=== PATIENT | male | born 1950 | race Caucasian/White ===

== ENCOUNTER 2025-07-07 10:35 | Emergency (ER) | payer MEDICARE, SELFPAY ==
[2025-07-07 10:37] VITALS: BP 164/86; PULSE 89; RESP 14; TEMP 36.1; O2SAT 98; BMI 25.3
--- NOTE | 2025-07-07 10:47 | CT_ITS ---
PROCEDURE: ABDOMEN/PELVIS WITHOUT CONT 07/07/2025 REASON FOR EXAM: RIGHT SIDED PAIN TECHNIQUE: Procedure Code: [id number] Modality: CT Procedure: ABDOMEN/PELVIS WITHOUT CONT Noncontrast technique limits evaluation of the abdominal and pelvic viscera. Coronal and Sagittal reconstruction series were provided. One or more dose reduction techniques were used (e.g., Automated exposure control, adjustment of the mA and/or kV according to patient size, use of iterative reconstruction technique). RADIATION DOSE SUMMARY: CTDlvol: 7.31 mGy DLP: 408.57 mGycm COMPARISON: None. FINDINGS: Lung bases: Multiple lobulated masses with the largest measures 4.6 x 4.4 cm suspicious for cancer. Liver: Unremarkable. Gallbladder: Unremarkable. Spleen: Unremarkable. Pancreas: Unremarkable. Adrenals: Unremarkable. Kidneys: Multiple bilateral kidney stones with the largest measures 3 mm. Perinephric fat stranding. No hydronephrosis. Bladder: Unremarkable. Reproductive Organs: Enlarged prostate measures 6 cm. Bowel: Colonic diverticulosis. Asymmetric wall thickening of the right transverse colon and splenic flexure concerning for colon cancer. Distally, central transverse colon pericolic fat stranding along with colonic diverticulosis consistent with acute diverticulitis. Appendix: Unremarkable. Lymph nodes: Multiple enlarged retroperitoneal and inguinal lymph nodes. Vasculature: No aneurysm. Peritoneum / Retroperitoneum: No free air or free fluid. Bones: No acute bony abnormalities. CT/Abdomen/Pelvis without Cont IMPRESSION: Multiple lobulated masses with the largest measures 4.6 x 4.4 cm suspicious for cancer. Asymmetric wall thickening of the right transverse colon and splenic flexure co ncerning for colon cancer. Distally, central transverse colon pericolic fat stranding along with colonic d iverticulosis consistent with acute diverticulitis. No abscess. Bilateral kidney stones with the largest measures 3 mm. Perinephric fat strand ing. No hydronephrosis. Reading Location: [id number]
--- NOTE | 2025-07-07 10:47 | EDS_ITS ---
HPI HPI - GI History of Present Illness Chief Complaint: Abd Pain Informant: patient Narrative Narrative: 75-year-old male presenting to the emergency room chief complaint of abdominal pain. Patient states that on Thursday he was putting some heavy things back in his barn. He went inside and ate a salad and developed pain on the right side of his abdomen. States it was pretty intense and he was hesitant to really to eat much and wondered if perhaps he had some food poisoning but he states he never really got sick. Pain seem to be worse with movement being upright as well as laying down. Last night he wrestled to sleep and eventually went and sat out of the chair was able to sleep and today he is feeling better but still has some point tenderness in the right mid abdomen. No changes in bowel movements. No urinary symptoms no fevers. He has not noticed any bulging. No testicular pain no radiation to the back. [facility] Medical History (Updated 07/07/25 @ 15:[address] Aureliano Garcia DO) Abdominal pain Allergy/AdvReac Type Severity Reaction Status Date / Time No Known Allergies Allergy Verified 07/07/25 11:06 Social History Smoking Status: Unknown if ever smoked ROS ROS ED Constitutional Constitutional ED: Denies chills, fever(s) or weight loss Eyes Eyes: Denies change in vision or diplopia ENT ENT ED: Denies ear pain, rhinorrhea or sore throat Cardiovascular Cardiovascular: Denies chest pain, orthopnea, palpitations or racing heartbeat Respiratory/Chest Respiratory/Chest: Denies cough, dyspnea or orthopnea Gastrointestinal Gastrointestinal: Reports abdominal pain; Denies diarrhea, nausea or vomiting Genitourinary Genitourinary ED: Denies dysuria, hematuria or urinary frequency Musculoskeletal Musculoskeletal: Denies arthralgias, back pain, myalgias or neck pain Integumentary Denies abscess or rash Neurologic Neurologic: Denies headache(s) or weakness Psychiatric Psychiatric: Denies anxiety, depression, suicidal ideation or suicidal thoughts Endocrine Endocrinology: Denies polydipsia, polyphagia or polyuria Allergic/Immunologic Allergic/Immunologic ED: Denies mouth swelling, tongue swelling or urticaria EXAM Physical Exam Const Vital Signs: 07/07/25 10:37 07/07/25 13:19 07/07/25 15:04 Temperature 97 F L Temperature Source Temporal Pulse Rate 89 67 84 Respiratory Rate 14 16 17 Blood Pressure 164/86 H 162/78 H 152/84 H Blood Pressure Mean 112 106 106 Pulse Ox 98 99 99 Oxygen Delivery Method Room Air Room Air Room Air 07/07/25 15:57 Temperature 97 F L Temperature Source Pulse Rate 84 Respiratory Rate 17 Blood Pressure 152/84 H Blood Pressure Mean 106 Pulse Ox 99 Oxygen Delivery Method Positive well nourished and well developed General Appearance ED: well developed and NAD HEENT Reports normocephalic, head/scalp atraumatic and moist mucous membranes Eyes PERRL and EOMs intact bilaterally Neck no lymphadenopathy, supple and no JVD Resp normal respiratory effort and clear to auscultation bilaterally Cardio regular rate, regular rhythm and no murmurs GI GI Narrative: Tender to palpation in the right mid abdomen very focal about a 2 finger breath. No guarding no rebound. No obvious hernia is seen or felt. Inspection: Negative for abdominal distention Auscultation: normoactive bowel sounds Palpation: soft; Negative for guarding or rebound tenderness present Back/Spine no CVA tenderness and normal ROM Extremity normal to inspection General Extremety ED: Negative for edema General Extremity: Negative for edema Neuro oriented x3 and CN's II-XII intact bilaterally Sensorium / Orientation: alert Motor Exam: strength 5/5 throughout Psych mental status grossly normal Mood & Affect: Negative for depressed or tearful Skin no rashes or lesions noted and no wounds MDM MDM MDM Narrative Medical decision making narrative: Differential diagnosis includes but not limited to abdominal muscle strain abdominal wall hematoma colitis appendicitis cholecystitis pancreatitis anemia diverticulitis Urinalysis was negative for gross infection or hematuria. CT ab pelvis without oral contrast was obtained. This is concerning for a lung metastasis as well as colon cancer. I reviewed the case with Dr. Sprague from gastroenterology. We are going to repeat the CT with IV contrast and oral contrast. CTA of the chest abdomen pelvis was obtained read by radiology reviewed by myself as well as with Dr. Sprague. Blood work shows normal LFTs and hemoglobin level 12.2 normal electrolytes normal lipase. I explained to the patient I am very concerned about colon cancer with metastasis. Dr. Sprague's office will be in contact with him to schedule colonoscopy in the next few days. I also spoke with the patient's primary care doctor to advise them of today's findings. Patient was given return instructions. At this time I am not seeing evidence of obstruction. Not seeing evidence of significant GI bleed that would need admission. Patient is comfortable with this plan. History & Record Review Discussion w/independent historian: Patient Lab Data Attestation: I reviewed the patient's lab results. Labs: Laboratory Results - last 24 hr 07/07/25 07/07/25 11:20 11:55 WBC 6.5 RBC 4.03 L Hgb 12.2 L Hct 36.2 L MCV 89.8 MCH 30.3 MCHC 33.7 RDW Std Deviation 41.0 RDW Coeff of [place] 12.4 Plt Count 283 MPV 9.4 Immature Gran % (Auto) 0.300 Neut % (Auto) 75.1 H Lymph % (Auto) 11.9 L [place] % (Auto) 9.3 Eos % (Auto) 2.6 Baso % (Auto) 0.8 Absolute Neuts (auto) 4.8 Absolute Lymphs (auto) 0.77 L Nucleated RBC % 0 Sodium 135 Potassium 4.3 Chloride 101 Carbon Dioxide 22.3 Anion Gap 12 BUN 13 Creatinine 1.00 Estim Creat Clear Calc 64.81 Est GFR (MDRD) Non-Af 79 BUN/Creatinine Ratio 13.2 Glucose 100 H Calcium 9.2 Total Bilirubin 0.46 Direct Bilirubin 0.21 AST 11 ALT 11 Alkaline Phosphatase 55 Total Protein 6.9 Albumin 3.8 Globulin 3.1 Lipase 33 Urine Color Yellow Urine Clarity Clear Urine pH 6.0 Ur Specific [place] 1.010 Urine Protein 15 H Urine Glucose (UA) Normal Urine Ketones Negative Urine Occult Blood 10 H Urine Nitrite Negative Urine Bilirubin Negative Urine Urobilinogen Normal Ur Leukocyte Esterase Negative Urine RBC 0 SEEN Urine WBC 0 SEEN Ur Squamous Epith Cells 0 SEEN Urine Bacteria 0 SEEN Urine Mucus 0 SEEN Radiography Diagnostic Testing: Clinical Impression(s) from Imaging Studies Abdomen/Pelvis CT 07/07/25 10:47 IMPRESSION: Multiple lobulated masses with the largest measures 4.6 x 4.4 cm suspicious for cancer. Asymmetric wall thickening of the right transverse colon and splenic flexure concerning for colon cancer. Distally, central transverse colon pericolic fat stranding along with colonic diverticulosis consistent with acute diverticulitis. No abscess. Bilateral kidney stones with the largest measures 3 mm. Perinephric fat stranding. No hydronephrosis. Reading Location: [facility] Chest/Abdomen/Pelvis CTA 07/07/25 14:20 IMPRESSION: Multiple pulmonary masses worse in the right lung in keeping with metastatic disease. Large apple-core mass in the region of the hepatic flexure as well as in the rectosigmoid junction. Neoplastic processes should be ruled out. Marked degree of prostatic enlargement with indentation of the bladder base. Diffuse bladder wall thickening. Reading Location: [id number] Management Discussion w/another healthcare provider: [employer] (Dr. Sprague gastroenterology) and PCP (Dr. Bhatti) Discharge Plan Triage Chief Complaint: Abd Pain ED Provider: Aureliano Garcia Dx/Rx/DC Orders Clinical Impression: Abdominal pain, acute, Colon cancer, Cancer, metastatic to lung Instructions: Colonoscopy Primary Care Provider: Aldo Goodwin Referrals: Aldo Goodwin DO [Primary Care Provider, Family Practice] - As soon as possible Brian Sprague DO [Med Staff - Active Staff, Gastroenterology] - As soon as possible Referral Note: [facility] office will be in contact with you to schedule the colonoscopy Print Language: Bulgarian Disposition Disposition: Home, Self Care Discharge Date/Time: 07/07/25 15:58
[2025-07-07 11:24] LABS: Mucous, Urine 0 SEEN /hpf (<or=2+); Red Blood Cells-Urine 0 SEEN /hpf (0-5); Squamous Epithelial Cells - UA 0 SEEN /hpf (0-5)
[2025-07-07 11:25] LABS: Color, Urine Yellow (Yellow); Glucose, Dipstick Normal (Normal); Ketone-Dipstick Negative (Negative); Leukocyte Esterase-Dipstick Negative /ul (Negative); Nitrite-Dipstick Negative (Negative); Occult Blood-Urine 10 /ul (Negative); Protein-Dipstick 15 mg/dl (Negative); Specific Gravity, Urine 1.010 (1.002-1.030); Urine Bilirubin Dipstick Negative (Negative)
[2025-07-07 12:12] LABS: Hematocrit 36.2 % (40-54); Hemoglobin 12.2 g/dL (13.0-16.5); Immature Granulocytes Count 0.020 X10^3/uL (0.0-0.0); Mean Corp Hgb Conc 33.7 g/dL (32-36); Mean Corpuscular Volume 89.8 fL (80-94); Mean Platelet Vol. 9.4 fl (6.2-12.0); NRBC Flagged by Analyzer 0 % (0-5); Platelet Count 283 K/mm3 (150-450); RBC Distribution Width CV 12.4 % (11.6-14.6); RBC Distribution Width SD 41.0 fl (35.1-43.9); Red Blood Count 4.03 M/mm3 (4.6-6.2); White Blood Count 6.5 K/mm3 (4.4-11.0)
[2025-07-07 12:29] LABS: AST(SGOT) 11 U/L (<=37); Alanine Aminotransfer ALT/SGPT 11 U/L (<=46); Albumin, Serum 3.8 g/dL (3.4-4.8); Alkaline Phosphatase 55 U/L (40-129); Anion Gap 12 (5-15); BUN 13 mg/dL (4-19); BUN/Creat Ratio 13.2 RATIO (10-20); Bilirubin, Direct 0.21 mg/dL (0.00-0.30); Calcium,Total 9.2 mg/dL (7.6-11.0); Carbon Dioxide 22.3 mmol/L (21.0-32.0); Chloride 101 mmol/L (98-108); Estimated Creatinine Clearance 64.81 ml/min (50-250); Globulin 3.1 g/dL (2.2-4.2); Glucose 100 mg/dL (70-99); Lipase 33 U/L (13-75); Potassium 4.3 mmol/L (3.3-5.1)
[2025-07-07 13:19] VITALS: BP 162/78; PULSE 67; RESP 16; O2SAT 99
--- NOTE | 2025-07-07 14:20 | CT_ITS ---
PROCEDURE: CTA CHST, ABD, PEL W AND/OR WO 07/07/2025 REASON FOR EXAM: ABNORMAL ABD CT, COLITIS (ISCHEMIC, DIVERTICULITIS Right lower quadrant pain since Thursday. TECHNIQUE: Procedure Code: CTCTA.CHAP.2 Modality: CT Procedure: CTA CHST, ABD, PEL W AND/OR WO Coronal and Sagittal reconstruction series were provided. One or more dose reduction techniques were used (e.g., Automated exposure control, adjustment of the mA and/or kV according to patient size, use of iterative reconstruction technique. CONTRAST: Isovue-300 VOLUME: 100 mL RADIATION DOSE SUMMARY: CTDlvol: 7.2 mGy DLP: 658.15 mGycm COMPARISON: Prior study done earlier in the day. FINDINGS: CHEST: Lines and tubes: None Mediastinum: Unremarkable Heart: The heart is nonenlarged. Coronary artery calcification. Thoracic Aorta: No thoracic aortic aneurysm or dissection. Scattered plaque formation of the thoracic aorta. Lungs and Airways: Multiple masses are seen in both lobes worse in the right hemithorax. The largest is in the right upper lobe and is lobulated. This measures 4.4 cm by 4.8 cm. This is in keeping with a metastatic deposits. Pleura: No pleural effusion. Bones: Degenerative changes of the spine. Other: ABDOMEN AND PELVIS: Liver: Borderline hepatomegaly. No focal lesion is seen. Gallbladder: The gallbladder is contracted. Spleen: Normal size. Pancreas: Normal size without evidence of mass surrounding inflammation or ductal dilation. Adrenals: Unremarkable Kidneys: Stable right renal cyst. Bladder: Diffuse bladder wall thickening. Marked degree of enlargement of the prostate gland with lobular contours. There is indentation at the bladder base. Bowel: Once again, there is large heterogeneous mass in the region of the hepatic flexure with apple core appearance. Scattered sigmoid diverticula. Possible apple-core lesion in the sigmoid colon just proximal to the rectosigmoid junction. Vasculature: Scattered atherosclerotic plaque formation. The celiac artery and superior mesenteric arteries are widely patent. Peritoneum / Retroperitoneum: Small retroperitoneal lymph nodes are seen. These measure less than 1 cm. Multiple small lymph nodes are seen in the pelvis. These measure less than 1 cm. Bones: Degenerative changes of the spine. CT/CTA Chst, Abd, Pel W and/or WO IMPRESSION: Multiple pulmonary masses worse in the right lung in keeping with metastatic di sease. Large apple-core mass in the region of the hepatic flexure as well as in the re ctosigmoid junction. Neoplastic processes should be ruled out. Marked degree of prostatic enlargement with indentation of the bladder base. D iffuse bladder wall thickening. Reading Location: [id number]
[2025-07-07 15:04] VITALS: BP 152/84; PULSE 84; RESP 17; O2SAT 99
[2025-07-07 15:57] VITALS: BP 152/84; PULSE 84; RESP 17; TEMP 36.1; O2SAT 99
== END 2025-07-07 15:58 | disposition home or self-care (01) ==
PROVIDERS: Emergency Provider Emergency Medicine; PCP Family Medicine; Visit Provider Emergency Medicine
DX: R10.9 Unspecified abdominal pain (principal); C78.00 Secondary malignant neoplasm of unspecified lung; C18.9 Malignant neoplasm of colon, unspecified
CPT/HCPCS: 71275; 74174; 74176; 80048; 80076; 81001; 83690; 85025; 99283; Q9967; A4216

== ENCOUNTER 2025-07-14 06:25 | Day surgery (SDC) | payer MEDICARE, SELFPAY ==
[2025-07-14] VITALS (9 sets, daily range): BP systolic 91–147; BP diastolic 60–74; PULSE 56–71; RESP 9–18; TEMP 35.9–36.1; O2SAT 97–100; BMI 24.0
--- OUTSIDE RECORDS SUMMARY | 2025-07-14 06:29 | XMS RPT_ITS | CCD ---
Author Organization [facility] Care Team Providers Care General Merchandise Manager Name Role Phone Nai Goodwin DO Primary Care Provider [phone] NAI GOODWIN Attending Unavailable NAI GOODWIN Primary Care Unavailable NAI GOODWIN Attending Unavailable NAI GOODWIN Primary Care Unavailable Nai Goodwin DO Primary Care Provider [phone] Medications Current Medications Medication Drug Class(es) Dates Sig (Normalized) Sig (Original) amLODIPine 5 mg oral tablet (16 sources) Dihydropyridine Calcium Channel Jesusita Start: 06-28-2024 End: 06-26-2025 take 1 tablet by mouth once daily amLODIPine (Norvasc) 5 MG tablet Take 1 tablet (5 mg) by mouth daily. 90 tablet 1 12/28/2024 06/26/2025 Active Start: 12-08-2022 End: 10-18-2024 take 1 tablet by mouth once daily amLODIPine (Norvasc) 2.5 MG tablet Take 1 tablet (2.5 mg) by mouth daily. 90 tablet 04/21/2024 06/28/2024 Discontinued (Reorder) atorvastatin 10 mg oral tablet (17 sources) HMG-CoA Reductase Inhibitor Start: 06-23-2022 End: 06-26-2025 take 1 tablet by mouth once daily atorvastatin (Lipitor) 10 MG tablet Take 1 tablet (10 mg) by mouth daily. 90 tablet 1 12/28/2024 06/26/2025 Active lisinopril 20 mg oral tablet (17 sources) Angiotensin Converting Enzyme Inhibitor Start: 06-23-2022 End: 06-26-2025 take 1 tablet by mouth twice daily lisinopril 20 MG tablet Take 1 tablet (20 mg) by mouth 2 times daily. 180 tablet 1 12/28/2024 06/26/2025 Active sildenafil 100 mg oral tablet (14 sources) Phosphodiesterase 5 Inhibitor Start: 11-11-2022 End: 12-28-2024 take 1 tablet by mouth every twenty-four hours as needed sildenafil (Viagra) 100 MG tablet Take 1 tablet (100 mg) by mouth Daily as needed for erectile dysfunction (as needed for erectile dysfunction). 8 tablet 3 12/28/2024 Active Problems Active Problems Problem Classification Problem Date Documented Da te Episodic/Chronic Disorders of lipid metabolism (16 sources) Hypercholesterole ailyn; Translations: [Pure hypercholesterole ailyn, unspecified] Onset: 08-17-2021 Chronic Essential hypertension (16 sources) Essential hypertension; Translations: [Essential (primary) hypertension] Onset: 06-19-2021 Chronic Other male genital disorders (5 sources) Male erectile dysfunction, unspecified; Translations: [Impotence of organic origin] Onset: 06-28-2024 06-28-2024 Chronic Past or Other Problems Problem Classification Problem Date Documented Da te Episodic/Chronic Other gastrointestinal disorders (12 sources) Stool DNA-based colorectal cancer screening positive; Translations: [Other fecal abnormalities] Onset: 05-08-2021 Episodic Other screening for suspected conditions (not mental disorders or infectious disease) (19 sources) Raised prostate specific antigen; Translations: [Elevated prostate specific antigen [PSA]] Onset: 11-15-2022 Episodic Residual codes; unclassified (10 sources) Family history of coronary arteriosclerosis; Translations: [Family history of ischemic heart disease and other diseases of the circulatory system] Onset: 06-19-2021 06-02-2022 Episodic Results Test Name Value Interpretation Reference Range [facility] ity Office Visiton 12-28-2024 Follow-up visit [id number] Jamee Green 1950 M Date Provider Department Center 12/28/2024 [id number] GOODWIN [facility] Family History Problem Relation Age of Onset Tuberculosis Mother Comments: age 39, Alcohol abuse Father Comments: age 58 Heart failure Father Comments: smoker Accidental Sister Comments: in MVA Lung cancer Sister Comments: age 64, SMOKER No Known Problems Brother Comments: not close, living in [place] Pulmonary embolism Brother Comments: age 39 Hypertension Brother Comments: alive age 75 Coronary artery disease Brother 62 Comments: CABG, smoker, alive age 71 Diabetes Maternal Grandfather Substance Abuse Paternal Grandfather Family Status - Relation Status Age at Mother Father Sister Sister Brother Alive Brother Brother Alive Brother Alive Maternal Grandmother Maternal Grandfather Paternal Grandmother Paternal Grandfather Level of Service:70188 [place] OFFICE/OUTPATIENT ESTABLISHED LOW MDM 20 MIN Reason for Visit and Comments: Follow-up [160415] - Med check Normal [facility] Progress Noteon 12-28-2024 Progress Note [facility] - [address] [facility] [address] Visit type: Established Patient Reason for Visit: Follow-up (Med check) Assessment / Plan: Jamee was seen today for follow-up. Diagnoses and all orders for this visit: Essential hypertension (Primary) - CBC auto differential; Future - Comprehensive metabolic panel; Future - CBC auto differential - Comprehensive metabolic panel Hypercholesterolemia - Lipid panel; Future - Lipid panel Elevated PSA, less than 10 ng/ml - PSA, total and free; Future - PSA, total and free Other orders - amLODIPine (Norvasc) 5 MG tablet; Take 1 tablet (5 mg) by mouth daily. - atorvastatin (Lipitor) 10 MG tablet; Take 1 tablet (10 mg) by mouth daily. - lisinopril 20 MG tablet; Take 1 tablet (20 mg) by mouth 2 times daily. - sildenafil (Viagra) 100 MG tablet; Take 1 tablet (100 mg) by mouth Daily as needed for erectile dysfunction (as needed for erectile dysfunction). Everything is stable. Continue amlodipine Lipitor and lisinopril. Discussed need for urology referral if PSA gets above 10 Subjective: Patient ID: Jamee Green is a 74 y.o. male. HPI hypertension lipid management. Patient has no new concerns. Still very active with his [employer] motorcycle trips. Enjoys it immensely. No cardiopulmonary concerns. Blood pressure excellent at home. Only concern is slightly elevated PSA over the years. Needs exam. Review of Systems no earache sore throat or cough. Defers regular flu vaccinations. No chest pain or dyspnea. No bowel changes. No heartburn melena or blood no constipation diarrhea. No change in urine flow. Strong stream. No change in nocturia postvoid dribbling or genital pain. No new arthralgias. Allergies[1] Current Medications[2] Problem List[3] Social History Tobacco Use Smoking status: Former Current packs/day: 0.00 Types: Cigarettes Quit date: 08/17/1989 Years since quittin.3 Smokeless tobacco: Never Substance Use Topics Alcohol use: Yes Surgical History[4] Family History[5] Objective: BP 134/78 Pulse 76 Temp 36.6 ?C (97.8 ?F) (Temporal) Ht 5' 9 (1.753 m) Wt 176 lb (79.8 kg) SpO2 96% BMI 25.99 kg/m? Physical Exam The physical exam is generally normal. Patient appears well, alert and oriented x 3, pleasant, cooperative. Vitals are as noted. Neck supple, no abnormal adenopathy, thyroid lesions or masses.. No carotid bruits lungs are clear to auscultation. Heart is regular, without murmurs, gallops or ectopy. Abdomen is soft, non tender, without masses, hepatosplenomegaly, or bruits. Normal BS evident. Extremities are normal without edema. Peripheral pulses are good. No worrisome skin lesions. Screening neurological exam is normal without focal deficits. [1] No Known Allergies [2] Current Outpatient Medications: amLODIPine (Norvasc) 5 MG tablet, Take 1 tablet (5 mg) by mouth daily., Disp: 90 tablet, Rfl: 1 atorvastatin (Lipitor) 10 MG tablet, Take 1 tablet (10 mg) by mouth daily., Disp: 90 tablet, Rfl: 1 lisinopril 20 MG tablet, Take 1 tablet (20 mg) by mouth 2 times daily., Disp: 180 tablet, Rfl: 1 sildenafil (Viagra) 100 MG tablet, Take 1 tablet (100 mg) by mouth Daily as needed for erectile dysfunction (as needed for erectile dysfunction)., Disp: 8 tablet, Rfl: 3 [3] Patient Active Problem List Diagnosis Family history of coronary artery disease in brother Positive colorectal cancer screening using Cologuard test Essential hypertension Hypercholesterolemia Elevated PSA, less than 10 ng/ml Erectile dysfunction [4] Past Surgical History: Procedure Laterality Date MULTIPLE TOOTH EXTRACTIONS dentures [5] Family History Problem Relation Name Age of Onset Tuberculosis Mother age 39, Alcohol abuse Father age 58 Heart failure Father smoker Accidental Sister Madeline in MVA Lung cancer Sister Grace age 64, SMOKER No Known Problems Brother Francisco not close, living in [place] Pulmonary embolism Brother Jose F age 39 Hypertension Brother Andriy alive age 75 Coronary artery disease Brother Maru ([place]) 62 CABG, smoker, alive age 71 Diabetes Maternal Grandfather Substance Abuse Paternal Grandfather [facility] 37on 06-28-2024 37 Personalized Preventative Plan for Jamee Green - 06/28/2024 Medicare offers a range of preventative health benefits. Some of the tests and screenings are paid in full while others may be subject to a deductible, co-insurance, and / or copay. Some of these benefits include a comprehensive review of your medical history including lifestyle, illnesses that may run in your family, and various assessments and screenings as appropriate. After reviewing your medical record and screening and assessments performed today, your provider may have ordered immunizations, labs, imaging, and / or referrals for you. A list of these orders (if applicable) as well as your Preventative Care list are included within your After Visit Summary for your review. Other Preventative Recommendations: A preventive eye exam by an artificial glass eye maker is recommended every 1-2 years to screen for glaucoma, cataracts, macular degeneration, and other eye disorders. A preventive dental visit is recommended every 6 months. Try to get at least 150 minutes of exercise per week or 10,000 steps per day on a pedometer. You need 1200-1500mg of calcium and [id number] international units of vitamin D per day. It is possible to meet your calcium requirement with diet alone, but a vitamin D supplement is usually necessary to meet this goal. When exposed to the sun, use a sunscreen that protects against both UVA and UVB radiation with an SPF of 30 or greater. Reapply every 2-3 hours or after sweating, drying off with a towel, or swimming. Always wear a seat belt when traveling in a car. Always wear a helmet when riding a bicycle or a motorcycle [facility] Office Visiton 06-28-2024 Follow-up visit [id number] Jamee Green 1950 M Date Provider Department Center 06/28/2024 [id number] GÓMEZ [facility] Family History Problem Relation Age of Onset Tuberculosis Mother Comments: age 39, Alcohol abuse Father Comments: age 58 Heart failure Father Comments: smoker Accidental Sister Comments: in MVA Lung cancer Sister Comments: age 64, SMOKER No Known Problems Brother Comments: not close, living in [place] Pulmonary embolism Brother Comments: age 39 Hypertension Brother Comments: alive age 75 Coronary artery disease Brother 62 Comments: CABG, smoker, alive age 71 Diabetes Maternal Grandfather Substance Abuse Paternal Grandfather Family Status - Relation Status Age at Mother Father Sister Sister Brother Alive Brother Brother Alive Brother Alive Maternal Grandmother Maternal Grandfather Paternal Grandmother Paternal Grandfather Level of Service:G0439 [place] PPPS, SUBSEQ VISIT (25) Reason for Visit and Comments: Medicare Annual Wellness Visit Subsequent [677] Normal [facility] Progress Noteon 06-28-2024 Progress Note [facility] - [address] [facility] [address] Dept: [phone] Dept Chief Complaint: Jamee Green is an 74 y.o. male here for an annual wellness visit. Hypertension lipid management for patient with history of elevated PSA less than 10 and also positive Cologuard. There has been no new concerns. Still has a very active lifestyle traveling in his [employer] motorcycle to multiple [place] [facility]. He continues not to smoke or drink and overall feels well. Assessment/Plan : Problem List Items Addressed This Visit Positive colorectal cancer screening using Cologuard test Essential hypertension Relevant Orders CBC auto differential Comprehensive metabolic panel Hypercholesterolemia Relevant Orders Lipid panel Elevated PSA, less than 10 ng/ml Relevant Orders PSA Total (Screening) Erectile dysfunction Other Visit Diagnoses Encounter for subsequent annual wellness visit (AWV) in Medicare patient - Primary Prostate cancer screening Relevant Orders PSA Total (Screening) I have reviewed and reconciled the medication list with the patient today. Current Outpatient Medications Medication Sig Dispense Refill amLODIPine (Norvasc) 5 MG tablet Take 1 tablet (5 mg) by mouth daily. 90 tablet 1 atorvastatin (Lipitor) 10 MG tablet Take 1 tablet (10 mg) by mouth daily. 90 tablet 1 lisinopril 20 MG tablet Take 1 tablet (20 mg) by mouth 2 times daily. 180 tablet 1 sildenafil (Viagra) 100 MG tablet Take 1 tablet (100 mg) by mouth Daily as needed for erectile dysfunction (as needed for erectile dysfunction). 8 tablet 3 No current facility-administered medications for this visit. Also reviewed during this visit: Problems Med Hx Surg Hx Fam Hx The following health maintenance schedule was reviewed with the patient and provided in printed form in the after visit summary: Health Maintenance Topic Date Due Hepatitis C Screening Never done Diabetes Screening Never done DTaP/Tdap/Td Vaccines (1 - Tdap) Never done Zoster Vaccines (1 of 2) Never done Colorectal Cancer Screening 09/09/2022 Medicare Advantage Annual Wellness Visit 08/17/2023 Influenza Vaccine (1) Never done COVID-19 Vaccine (3 - season) 2024 Depression Screening 06/28/2025 RSV Immunization for Adults (1 - 1-dose 75+ series) 2026 Lipid Panel 08/24/2028 Pneumococcal Vaccine: 65+ Years Completed RSV Immunization under 20 Months Aged Out HIB Vaccines Aged Out Hepatitis B Vaccines Aged Out IPV Vaccines Aged Out Hepatitis A Vaccines Aged Out Meningococcal Vaccine Aged Out Rotavirus Vaccines Aged Out HPV Vaccines Aged Out List of current healthcare providers: Patient Care Team: Nai Goodwin DO as PCP - General Orders Placed This Encounter Procedures CBC auto differential Standing Status: Future Number of Occurrences: 1 Standing Expiration Date: 06/28/2025 Comprehensive metabolic panel Standing Status: Future Number of Occurrences: 1 Standing Expiration Date: 06/28/2025 Lipid panel Standing Status: Future Number of Occurrences: 1 Standing Expiration Date: 06/28/2025 PSA Total (Screening) Standing Status: Future Number of Occurrences: 1 Standing Expiration Date: 06/28/2025 Review of Systems weight and appetite is good. No recent earache sore throat or cough. No chest pain or palpitations or dyspnea. Blood pressure apparently pretty well at home. No heartburn or abdominal pain. Bowels are regular. No melena or blood. Has a positive Cologuard 3 years ago but has somehow not followed up with his GI referrals. He is not interested in getting those studies. Also history of elevated PSA and has deferred urology consultation. No hesitancy but has some urgency. Some nocturia is unchanged. No postvoid dribbling dysuria or hematuria. No pelvic pain. Rare arthralgia. Overall feels great and enjoys his lifestyle Physical Exam The physical exam is generally normal. Patient appears well, alert and oriented x 3, pleasant, cooperative. Vitals are as noted. No carotid bruits. Neck supple, no abnormal adenopathy, thyroid lesions or masses. Ears, nose and throat are normal without acute findings. Lungs are clear to auscultation. Heart is regular, without murmurs, gallops or ectopy. Abdomen is soft, non tender, without masses, hepatosplenomegaly, or bruits. Normal BS evident. He defers YANIV. Extremities are normal without edema. Peripheral pulses are fair. No worrisome skin lesions. Screening neurological exam is normal without focal deficits. Objective : BP (!) 158/82 Pulse 68 Temp 36.3 ?C (97.4 ?F) (Temporal) Ht 5' 8 (1.727 m) Wt 168 lb (76.2 kg) SpO2 100% BMI 25.54 kg/m? No results found. Subjective : Health Risk Assessment: General: General In general, how would you say your health is?: Very good In the past 7 days, hav (more content not included)... Normal [facility] 36on 04-21-2024 36 RX loaded Next ov 08/24/23 Normal [facility] PSA Screeningon 12-09-2022 Interpretation and review of laboratory results Abnormal [facility] Prostate specific Ag [Mass/Vol] 5.48 ng/mL High < OR = 4.00 [facility] Comment on above: The total PSA value from this assay system is standardized against the WHO standard. The test result will be approximately 20% lower when compared to the equimolar-standardized total PSA ([place]). Comparison of serial PSA results should be interpreted with this fact in mind. This test was performed using the Siemens chemiluminescent method. Values obtained from different assay methods cannot be used interchangeably. PSA levels, regardless of value, should not be interpreted as absolute evidence of the presence or absence of disease. [facility] CNCOon 01-23-2022 CNCO Letter Text Normal [facility] CNCOon 06-27-2021 CNCO Letter Text Normal [facility] OBSOLETEon 06-27-2021 OBSOLETE Refill (GSTNOR) JAMEE GREEN ([id number]) 1950 M Date Time Provider Department 06/27/21 LATIAROLANDO WESМарина MONTOYA During your visit today, we recorded the following information about you: Allergies As of Date: 06/27/2021 (No Known Allergies) Date Reviewed: Never Reviewed Reason for Visit: Refill Request [94] Primary Visit Diagnosis:Screening for colon cancer [Z12.11] Order(s):COLONOSCOPY SCRN NOT HIGH RISK [[id number]] Order #: [id number] FUTURE Prescriptions as of 06/27/2021 - peg 3350-Electrolytes (GOLYTELY) 236-22.74-6.74 -5.86 gram suspension Refer to printed patient instructions that will be mailed to you. - sildenafil (VIAGRA) 100 mg tablet Take 100 mg by mouth as needed. Problem List As Of Date: 06/27/2021 (None) Encounter Status:Closed by BOSSMAN LOMBARDO on 06/27/21 Normal [facility] CNCOon 06-05-2021 CNCO Letter Text Normal [facility] Vital Signs Date Time Vital Sign Value Performing Clinician Calvin lindquist 12-28-2024 07:36-0400 Diastolic blood pressure 78 mm[Hg] Nai Goodwin DO Work Phone: [employer] 12-28-2024 07:36-0400 Heart rate 76 /min Nai Christa [employer] Work Phone: [employer] 12-28-2024 07:36-0400 Systolic blood pressure 134 mm[Hg] Nai Goodwin DO Work Phone: [employer] 12-28-2024 07:14-0400 Body height 175.3 cm Nai Maurokizzypop [employer] Work Phone: [employer] 12-28-2024 07:14-0400 Body mass index (BMI) [Ratio] 25.99 kg/m2 Nai Mauroeugene [employer] Work Phone: [employer] 12-28-2024 07:14-0400 Body temperature 97.81 [degF] Nai Goodwin DO Work Phone: [facility] [place] [facility] 12-28-2024 07:14-0400 Body weight 79.83 kg Nai Goodwin DO Work Phone: [facility] 12-28-2024 07:14-0400 SaO2% (BldA) [Mass fraction] 96 % Nai Goodwin DO Work Phone: [facility] 06-28-2024 16:48-0500 Diastolic blood pressure 82 mm[Hg] Nai Goodwin DO Work Phone: [facility] 06-28-2024 16:48-0500 Heart rate 68 /min Nai Goodwin DO Work Phone: [facility] 06-28-2024 16:48-0500 Systolic blood pressure 158 mm[Hg] Nai Godowin DO Work Phone: [facility] 06-28-2024 15:53-0500 Body height 172.7 cm Nai Goodwin DO Work Phone: [facility] 06-28-2024 15:53-0500 Body mass index (BMI) [Ratio] 25.54 kg/m2 Nai Goodwin DO Work Phone: [facility] 06-28-2024 15:53-0500 Body temperature 97.39 [degF] Nai Goodwin DO Work Phone: [facility] 06-28-2024 15:53-0500 Body weight 76.2 kg Nai Goodwin DO Work Phone: [facility] 06-28-2024 15:53-0500 SaO2% (BldA) [Mass fraction] 100 % Nai Glasgowa DO Work Phone: [facility] 08-24-2023 10:21-0500 Diastolic blood pressure 80 mm[Hg] Nai Goodwin DO Work Phone: [facility] 08-24-2023 10:21-0500 Heart rate 68 /min Nai Goodwin DO Work Phone: [facility] 08-24-2023 10:21-0500 Systolic blood pressure 134 mm[Hg] Nai Goodwin DO Work Phone: [facility] 08-24-2023 09:42-0500 Body height 172.7 cm Nai Goodwin DO Work Phone: [facility] 08-24-2023 09:42-0500 Body mass index (BMI) [Ratio] 26.61 kg/m2 Nai Goodwin DO Work Phone: [facility] 08-24-2023 09:42-0500 Body temperature 97.7 [degF] Nai Goodwin DO Work Phone: [facility] 08-24-2023 09:42-0500 Body weight 79.38 kg Nai Goodwin DO Work Phone: [facility] 08-24-2023 09:42-0500 SaO2% (BldA) [Mass fraction] 97 % Nai Goodwin DO Work Phone: [facility] 12-08-2022 11:26-0400 Diastolic blood pressure 88 mm[Hg] Nai Goodwin DO Work Phone: [facility] 12-08-2022 11:26-0400 Heart rate 68 /min Nai Goodwin DO Work Phone: [facility] 12-08-2022 11:26-0400 Systolic blood pressure 146 mm[Hg] Nai Goodwin DO Work Phone: [facility] 12-08-2022 10:40-0400 Body height 172.7 cm Nai Goodwin DO Work Phone: [facility] 12-08-2022 10:40-0400 Body mass index (BMI) [Ratio] 26.76 kg/m2 Nai Goodwin DO Work Phone: [facility] 12-08-2022 10:40-0400 Body temperature 97.81 [degF] Nai Goodwin DO Work Phone: [facility] 12-08-2022 10:40-0400 Body weight 79.83 kg Nai Goodwin DO Work Phone: [facility] 12-08-2022 10:40-0400 SaO2% (BldA) [Mass fraction] 98 % Nai Goodwin DO Work Phone: [facility] Encounters Encounter Date Encounter Type Care Provider Facility Start: 01-01-2025 End: 01-01-2025 Follow-up encounter Nai Goodwin DO Work Phone: [facility] Comment on above: CBC auto differentia l, Comprehensive metabolic panel, Lipid panel, PSA, total and free Start: 12-28-2024 End: 12-28-2024 Office outpatient visit 15 minutes Nai Goodwin DO Work Phone: [facility] Comment on above: Essential hypertensi on (Primary Dx); Hypercholesterolemia; Elevated PSA, less than 10 ng/ml Start: 12-28-2024 End: 12-28-2024 [facility] [place] [facility] Start: 06-28-2024 End: 06-28-2024 Assay of hemosiderin, quant Nai Goodwin DO Work Phone: [facility] Start: 06-28-2024 End: 06-28-2024 Patient encounter procedure Nai Goodwin DO Work Phone: [facility] Comment on above: Encounter for subseq uent annual wellness visit (AWV) in Medicare patient (Primary Dx); Essential hypertension; Hypercholesterolemia; Elevated PSA, less than 10 ng/ml; Prostate cancer screening; Positive colorectal cancer screening using Cologuard test; Erectile dysfunction, unspecified erectile dysfunction type; Routine general medical examination at health care facility Start: 06-28-2024 End: 06-28-2024 [facility] Start: 06-28-2024 End: 06-28-2024 Encounter for general adult medical examination without abnormal findings [place] [facility] Start: 04-21-2024 End: 04-21-2024 Refill Nai Goodwin DO Work Phone: [facility] Start: 08-24-2023 End: 08-24-2023 Office outpatient visit 15 minutes Nai Goodwin DO Work Phone: [facility] Comment on above: Essential hypertensi on (Primary Dx); Hypercholesterolemia; Elevated PSA, less than 10 ng/ml Start: 07-29-2023 Refill Nai knight DO Work Phone: [facility] Start: 12-10-2022 Telephone encounter Nai galvan DO Work Phone: [facility] Comment on above: Orders (Urology) Start: 12-08-2022 End: 12-08-2022 Assay of hemosiderin, quant Nai Goodwin DO Work Phone: [facility] Start: 12-08-2022 End: 12-08-2022 Patient encounter procedure Nai Goodwin DO Work Phone: [facility] Comment on above: Encounter for subseq uent annual wellness visit (AWV) in Medicare patient (Primary Dx); Essential hypertension; Hypercholesterolemia; Elevated PSA, less than 10 ng/ml; Positive colorectal cancer screening using Cologuard test; Routine general medical examination at health care facility Procedures Date Procedure Procedure Detail Performing Clinician Start: 12-28-2024 Adult depression screening assessment Nai Goodwin DO Work Phone: Start: 12-28-2024 Lipid 1996 panel - S catrina or Plasma Nai Goodwin DO Work Phone: Start: 06-28-2024 Adult depression screening assessment Nai Goodwin DO Work Phone: Start: 08-24-2023 Lipid 1996 panel - S catrina or Plasma Nai Goodwin DO Work Phone: Start: 12-08-2022 PSA screening Nai Goodwin DO Work Phone: Start: 12-08-2022 Adult depression screening assessment Nai Goodwin DO Work Phone: Start: 06-23-2022 Lipid 1996 panel - S catrina or Plasma Nai Goodwin DO Work Phone: Plan of Treatment Date Care Activity Detail Author Start: 12-28-2029 Lipid panel Lipid Panel [facility] Start: 08-24-2028 Lipid panel Lipid Panel [facility] Start: 06-23-2027 Lipid panel Lipid Panel [facility] Start: 2026 RSV Immunization for Adults (1 - 1-dose 75+ series) RSV Immunization for Adults (1 - 1-dose 75+ series) [facility] Start: 12-28-2025 Depression Screening Depression Screening [facility] Start: 06-28-2025 Depression Screening Depression Screening [facility] Start: 06-27-2025 End: 06-27-2025 Patient encounter procedure 06/27/2025 7:00 AM EST Office Visit [facility] [address] [place] [address] Nai Goodwin DO [address] [place] [address] [place] [address] [facility] [place] Start: 04-17-2025 Influenza vaccination Influenza Vaccine (Season Ended) [facility] Start: 12-28-2024 End: 12-28-2025 CBC W Auto Differential panel - Blood CBC auto differential Lab Routine Essential hypertension Expected: 12/28/2024 (Approximate), Expires: 12/28/2025 [facility] Work Phone: Comment on above: Expected: 12/28/2024 (Approximate), Expi res: 12/28/2025 Start: 12-28-2024 End: 12-28-2025 Comprehensive metabolic 1998 panel - Serum or Plasma Comprehensive metabolic panel Lab Routine Essential hypertension Expected: 12/28/2024 (Approximate), Expires: 12/28/2025 [facility] Comment on above: Expected: 12/28/2024 (Approximate), Expi res: 12/28/2025 Start: 12-28-2024 End: 12-28-2025 Lipid 1996 panel - Serum or Plasma Lipid panel Lab Routine Hypercholesterolemia Expected: 12/28/2024 (Approximate), Expires: 12/28/2025 [facility] Comment on above: Expected: 12/28/2024 (Approximate), Expi res: 12/28/2025 Start: 12-28-2024 End: 12-28-2025 PSA, total and free PSA, total and free Lab Routine Elevated PSA, less than 10 ng/ml Expected: 12/28/2024 (Approximate), Expires: 12/28/2025 [facility] Comment on above: Expected: 12/28/2024 (Approximate), Expi res: 12/28/2025 Start: 12-28-2024 End: 12-28-2024 Patient encounter procedure 12/28/2024 7:30 AM EDT Office Visit [facility] [place] [address] [place] [id number] Nai Goodwin, DO [address] [place] [address] [facility] Start: 08-17-2024 Medicare Advantage Annual Wellness Visit Medicare Advantage Annual Wellness Visit [facility] Start: 06-28-2024 End: 06-28-2024 Patient encounter procedure 06/28/2024 4:00 PM EST Office Visit [facility] [address] [place] [address] Nai Goodwin, DO [address] [place] [place] [address] [facility] Start: 06-28-2024 End: 06-28-2025 CBC W Auto Differential panel - Blood CBC auto differential Lab Routine Essential hypertension Expected: 06/28/2024 (Approximate), Expires: 06/28/2025 [facility] Work Phone: Comment on above: Expected: 06/28/2024 (Approximate), Expi res: 06/28/2025 Start: 06-28-2024 End: 06-28-2025 Comprehensive metabolic 1998 panel - Serum or Plasma Comprehensive metabolic panel Lab Routine Essential hypertension Expected: 06/28/2024 (Approximate), Expires: 06/28/2025 [facility] Comment on above: Expected: 06/28/2024 (Approximate), Expi res: 06/28/2025 Start: 06-28-2024 End: 06-28-2025 Lipid 1996 panel - Serum or Plasma Lipid panel Lab Routine Hypercholesterolemia Expected: 06/28/2024 (Approximate), Expires: 06/28/2025 [facility] Comment on above: Expected: 06/28/2024 (Approximate), Expi res: 06/28/2025 Start: 06-28-2024 End: 06-28-2025 PSA Total (Screening) PSA Total (Screening) Lab Routine Elevated PSA, less than 10 ng/ml Prostate cancer screening Expected: 06/28/2024 (Approximate), Expires: 06/28/2025 [facility] Comment on above: Expected: 06/28/2024 (Approximate), Expi res: 06/28/2025 Start: 04-17-2024 COVID-19 Vaccine ( season) COVID-19 Vaccine () [facility] Start: 04-17-2024 COVID-19 Vaccine ( season) COVID-19 Vaccine () [facility] Start: 04-17-2024 Influenza vaccination Influenza Vaccine (#1) [facility] Start: 02-24-2024 End: 02-24-2024 Patient encounter procedure 02/24/2024 9:00 AM EDT Office Visit [facility] [address] [place] [address] Nai Goodwin DO [address] [place] [address] [facility] Start: 01-08-2024 Medicare Advantage Annual Wellness Visit (AWV) Medicare Advantage Annual Wellness Visit (AWV) [facility] Start: 12-09-2023 Depression Screening Depression Screening [facility] Start: 08-24-2023 End: 08-24-2024 CBC W Auto Differential panel - Blood CBC auto differential Lab Routine Essential hypertension Expected: 08/24/2023 (Approximate), Expires: 08/24/2024 [facility] Work Phone: Comment on above: Expected: 08/24/2023 (Approximate), Expi res: 08/24/2024 Start: 08-24-2023 End: 08-24-2024 Comprehensive metabolic 1998 panel - Serum or Plasma Comprehensive metabolic panel Lab Routine Essential hypertension Expected: 08/24/2023 (Approximate), Expires: 08/24/2024 [facility] Comment on above: Expected: 08/24/2023 (Approximate), Expi res: 08/24/2024 Start: 08-24-2023 End: 08-24-2024 Lipid 1996 panel - Serum or Plasma Lipid panel Lab Routine Hypercholesterolemia Expected: 08/24/2023 (Approximate), Expires: 08/24/2024 [facility] Comment on above: Expected: 08/24/2023 (Approximate), Expi res: 08/24/2024 Start: 08-24-2023 End: 08-24-2024 PSA, total and free PSA, total and free Lab Routine Elevated PSA, less than 10 ng/ml Expected: 08/24/2023 (Approximate), Expires: 08/24/2024 [facility] Comment on above: Expected: 08/24/2023 (Approximate), Expi res: 08/24/2024 Start: 08-24-2023 End: 08-24-2023 Patient encounter procedure 08/24/2023 10:00 AM EST Office Visit [facility] [address] [place] [address] Nai Goodwin DO [address] [place] [address] [place] [address] [facility] Start: 08-17-2023 Medicare Advantage Annual Wellness Visit Medicare Advantage Annual Wellness Visit [facility] Start: 04-17-2023 COVID-19 Vaccine () COVID-19 Vaccine () [facility] Start: 04-17-2023 Influenza vaccination [facility] Start: 12-08-2022 End: 12-09-2023 CBC W Auto Differential panel - Blood CBC auto differential Lab Routine Essential hypertension Expected: 12/08/2022 (Approximate), Expires: 12/09/2023 [facility] Comment on above: Expected: 12/08/2022 (Approximate), Expi res: 12/09/2023 Start: 12-08-2022 End: 12-09-2023 Comprehensive metabolic 1998 panel - Serum or Plasma Comprehensive metabolic panel Lab Routine Essential hypertension Expected: 12/08/2022 (Approximate), Expires: 12/09/2023 [facility] Comment on above: Expected: 12/08/2022 (Approximate), Expi res: 12/09/2023 Start: 12-08-2022 End: 12-09-2023 PSA Diagnostic PSA Diagnostic Lab Routine Elevated PSA, less than 10 ng/ml Expected: 12/08/2022 (Approximate), Expires: 12/09/2023 [facility] Work Phone: Comment on above: Expected: 12/08/2022 (Approximate), Expi res: 12/09/2023 Start: 09-09-2022 Screening for malignant neoplasm of colon [facility] Start: 03-07-2021 COVID-19 Vaccine (3 - Booster for Moderna series) COVID-19 Vaccine (3 - Booster for Moderna series) [facility] Start: 2011 RSV Immunization aged 60 or older (1 - 1-dose 60+ series) RSV Immunization aged 60 or older (1 - 1-dose 60+ series) [facility] Start: 2001 Zoster Vaccines (1 of 2) Zoster Vaccines (1 of 2) [facility] Start: 1970 DTaP/Tdap/Td Vaccines (1 - Tdap) DTaP/Tdap/Td Vaccines (1 - Tdap) [facility] Start: 1969 Diabetes mellitus screening Diabetes Screening [facility] Start: 1969 Hepatitis C screening Hepatitis C Screening [facility] Start: 1951 Hepatitis B Vaccines (1 of 3 - 3-dose series) Hepatitis B Vaccines (1 of 3 - 3-dose series) [facility] Start: 1950 Medicare Advantage Annual Wellness Visit (AWV) Medicare [facility] Annual Wellness Visit (AWV) [facility] Start: 1950 Screening for malignant neoplasm of colon [facility] Immunizations Immunization Date Immunization Notes Care Provider Fa fransisca 06-23-2022 Pneumococcal Conjuga te PCV20, Pf (Prevnar 20) Nai Goodwin DO Work Phone: [facility] Payers Date Payer Category Payer Medicare [facility] E MEDICARE UHC AARP MEDICARE ADVANTAGE LIFE1 [id number] 2021-Present [phone] [address] [address] [place] [address] Medicare HMO [id number] 2021 Medicare HMO UHC AARP MEDICAR E ADVANTAGE LIFE1 [id number] 2021 Medicare [id number] Social History Date Type Detail Facility Start: 06-23-2022 End: 06-28-2024 Tobacco smoking status NHIS Ex-smoker [facility] End: 08-17-1989 History of tobacco use Current smoker [facility] End: 08-17-1989 History of tobacco use Cigarette Smoker [facility] Start: 06-23-2022 End: 06-28-2024 Cigarettes smoked current (pack per day) - Reported 1 [facility] Start: 06-23-2022 End: 06-28-2024 Tobacco use and exposure Smokeless tobacco non-user [facility] Start: 12-08-2022 End: 12-28-2024 Alcohol intake Current drinker of alcohol (finding) [facility] Start: 1950 Sex Assigned At Not on file [facility] Start: 11-28-2022 End: 12-08-2022 Exposure to SARS-CoV-2 (event) Not sure [facility] Start: 07-29-2023 End: 06-28-2024 Tobacco use panel [facility] Start: 08-24-2023 Gender identity Identifies as male gender (finding) [facility] Start: 08-24-2023 Sexual orientation Heterosexual (zaira fernando) [facility] How often do you nee d to have someone help you when you read instructions, pamphlets, or other written material from your doctor or pharmacy [SILS] Never [facility] Has the [employer], oil, or water [employer] threatened to shut off services in your home in past 12Mo No [facility] Do you belong to any clubs or organizations such as yarsani groups, unions, fraternal or athletic groups, or school groups? Yes [facility] Are you now , , , , never or living with a partner? [facility] How often to you hav e a drink containing alcohol? 2-3 time sa week [facility] How many standard dr inks containing alcohol do you have on a typical day? 1 or 2 [facility] How often do you hav e 6 or more drinks on 1 occasion? Never [facility] Do you feel stress - tense, restless, nervous, or anxious, or unable to sleep at night because your mind is troubled all the time - these days [OSQ] Not at all [facility] (I/We) worried wheth er (my/our) food would run out before (I/we) got money to buy more. Never true [facility] Start: 03-18-2022 Sex Male (finding) [facility] Functional Status Date Assessment Result Facility 12-28-2024 Patient Health Questionnaire 2 item (PHQ- 2) [Reported] [facility] Clinical Notes 12-08-2022 to 12-28-2024 Nai Goodwin, - 12/28/2024 7:40 AM EDTPatient InstructionsEualvaro Goodwin, - 06/28/2024 4:00 PM ESTPatient InstructionsTelephone Encounter - Kymberly Suggs LPN - 04/21/2024 2:59 PM EDT Note Date & Type Note Facility 12-28-2024 History of Present illness Narrative Images from the original note were not included. [facility] - [address] [facility] [address] Visit type: Established Patient Reason for Visit: Follow-up (Med check) Assessment / Plan: Jamee was seen today for follow-up. Diagnoses and all orders for this visit: Essential hypertension (Primary) - CBC auto differential; Future - Comprehensive metabolic panel; Future - CBC auto differential - Comprehensive metabolic panel Hypercholesterolemia - Lipid panel; Future - Lipid panel Elevated PSA, less than 10 ng/ml - PSA, total and free; Future - PSA, total and free Other orders - amLODIPine (Norvasc) 5 MG tablet; Take 1 tablet (5 mg) by mouth daily. - atorvastatin (Lipitor) 10 MG tablet; Take 1 tablet (10 mg) by mouth daily. - lisinopril 20 MG tablet; Take 1 tablet (20 mg) by mouth 2 times daily. - sildenafil (Viagra) 100 MG tablet; Take 1 tablet (100 mg) by mouth Daily as needed for erectile dysfunction (as needed for erectile dysfunction). Everything is stable. Continue amlodipine Lipitor and lisinopril. Discussed need for urology referral if PSA gets above 10 Subjective: Patient ID: Jamee Green is a 74 y.o. male. HPI hypertension lipid management. Patient has no new concerns. Still very active with his [employer] motorcycle trips. Enjoys it immensely. No cardiopulmonary concerns. Blood pressure excellent at home. Only concern is slightly elevated PSA over the years. Needs exam. Review of Systems no earache sore throat or cough. Defers regular flu vaccinations. No chest pain or dyspnea. No bowel changes. No heartburn melena or blood no constipation diarrhea. No change in urine flow. Strong stream. No change in nocturia postvoid dribbling or genital pain. No new arthralgias. Allergies[1] Current Medications[2] Problem List[3] Social History Tobacco Use Smoking status: Former Current packs/day: 0.00 Types: Cigarettes Quit date: 08/17/1989 Years since quittin.3 Smokeless tobacco: Never Substance Use Topics Alcohol use: Yes Surgical History[4] Family History[5] Objective: BP 134/78 Pulse 76 Temp 36.6 C (97.8 F) (Temporal) Ht 5' 9 (1.753 m) Wt 176 lb (79.8 kg) SpO2 96% BMI 25.99 kg/m Physical Exam The physical exam is generally normal. Patient appears well, alert and oriented x 3, pleasant, cooperative. Vitals are as noted. Neck supple, no abnormal adenopathy, thyroid lesions or masses.. No carotid bruits lungs are clear to auscultation. Heart is regular, without murmurs, gallops or ectopy. Abdomen is soft, non tender, without masses, hepatosplenomegaly, or bruits. Normal BS evident. Extremities are normal without edema. Peripheral pulses are good. No worrisome skin lesions. Screening neurological exam is normal without focal deficits. [1] No Known Allergies [2] Current Outpatient Medications: amLODIPine (Norvasc) 5 MG tablet, Take 1 tablet (5 mg) by mouth daily., Disp: 90 tablet, Rfl: 1 atorvastatin (Lipitor) 10 MG tablet, Take 1 tablet (10 mg) by mouth daily., Disp: 90 tablet, Rfl: 1 lisinopril 20 MG tablet, Take 1 tablet (20 mg) by mouth 2 times daily., Disp: 180 tablet, Rfl: 1 sildenafil (Viagra) 100 MG tablet, Take 1 tablet (100 mg) by mouth Daily as needed for erectile dysfunction (as needed for erectile dysfunction)., Disp: 8 tablet, Rfl: 3 [3] Patient Active Problem List Diagnosis Family history of coronary artery disease in brother Positive colorectal cancer screening using Cologuard test Essential hypertension Hypercholesterolemia Elevated PSA, less than 10 ng/ml Erectile dysfunction [4] Past Surgical History: Procedure Laterality Date MULTIPLE TOOTH EXTRACTIONS dentures [5] Family History Problem Relation Name Age of Onset Tuberculosis Mother age 39, Alcohol abuse Father age 58 Heart failure Father smoker Accidental Sister Madeline in MVA Lung cancer Sister Grace age 64, SMOKER No Known Problems Brother Francisco not close, living in [place] Pulmonary embolism Brother Jose F age 39 Hypertension Brother Andriy alive age 75 Coronary artery disease Brother Maru ([place]) 62 CABG, smoker, alive age 71 Diabetes Maternal Grandfather Substance Abuse Paternal Grandfather documented in this encounter [facility] 12-28-2024 Instructions Nai Goodwin DO - 12/28/2024 7:40 AM EDT Might need Urology referral if PSA is elevating documented in this encounter [facility] 12-28-2024 Note Might need Urology r eferral if PSA is elevating [facility] 06-28-2024 History of Present illness Narrative Images from the original note were not included. [facility] - [address] [facility] [address] Dept: [phone] Dept Chief Complaint: Jamee Green is an 74 y.o. male here for an annual wellness visit. Hypertension lipid management for patient with history of elevated PSA less than 10 and also positive Cologuard. There has been no new concerns. Still has a very active lifestyle traveling in his [employer] motorcycle to multiple parts of the [facility] [place]. He continues not to smoke or drink and overall feels well. Assessment/Plan : Problem List Items Addressed This Visit Positive colorectal cancer screening using Cologuard test Essential hypertension Relevant Orders CBC auto differential Comprehensive metabolic panel Hypercholesterolemia Relevant Orders Lipid panel Elevated PSA, less than 10 ng/ml Relevant Orders PSA Total (Screening) Erectile dysfunction Other Visit Diagnoses Encounter for subsequent annual wellness visit (AWV) in Medicare patient - Primary Prostate cancer screening Relevant Orders PSA Total (Screening) I have reviewed and reconciled the medication list with the patient today. Current Outpatient Medications Medication Sig Dispense Refill amLODIPine (Norvasc) 5 MG tablet Take 1 tablet (5 mg) by mouth daily. 90 tablet 1 atorvastatin (Lipitor) 10 MG tablet Take 1 tablet (10 mg) by mouth daily. 90 tablet 1 lisinopril 20 MG tablet Take 1 tablet (20 mg) by mouth 2 times daily. 180 tablet 1 sildenafil (Viagra) 100 MG tablet Take 1 tablet (100 mg) by mouth Daily as needed for erectile dysfunction (as needed for erectile dysfunction). 8 tablet 3 No current facility-administered medications for this visit. Also reviewed during this visit: Problems Med Hx Surg Hx Fam Hx The following health maintenance schedule was reviewed with the patient and provided in printed form in the after visit summary: Health Maintenance Topic Date Due Hepatitis C Screening Never done Diabetes Screening Never done DTaP/Tdap/Td Vaccines (1 - Tdap) Never done Zoster Vaccines (1 of 2) Never done Colorectal Cancer Screening 09/09/2022 Medicare Advantage Annual Wellness Visit 08/17/2023 Influenza Vaccine (1) Never done COVID-19 Vaccine (3 - season) 2024 Depression Screening 06/28/2025 RSV Immunization for Adults (1 - 1-dose 75+ series) 2026 Lipid Panel 08/24/2028 Pneumococcal Vaccine: 65+ Years Completed RSV Immunization under 20 Months Aged Out HIB Vaccines Aged Out Hepatitis B Vaccines Aged Out IPV Vaccines Aged Out Hepatitis A Vaccines Aged Out Meningococcal Vaccine Aged Out Rotavirus Vaccines Aged Out HPV Vaccines Aged Out List of current healthcare providers: Patient Care Team: Nai Goodwin DO as PCP - General Orders Placed This Encounter Procedures CBC auto differential Standing Status: Future Number of Occurrences: 1 Standing Expiration Date: 06/28/2025 Comprehensive metabolic panel Standing Status: Future Number of Occurrences: 1 Standing Expiration Date: 06/28/2025 Lipid panel Standing Status: Future Number of Occurrences: 1 Standing Expiration Date: 06/28/2025 PSA Total (Screening) Standing Status: Future Number of Occurrences: 1 Standing Expiration Date: 06/28/2025 Review of Systems weight and appetite is good. No recent earache sore throat or cough. No chest pain or palpitations or dyspnea. Blood pressure apparently pretty well at home. No heartburn or abdominal pain. Bowels are regular. No melena or blood. Has a positive Cologuard 3 years ago but has somehow not followed up with his GI referrals. He is not interested in getting those studies. Also history of elevated PSA and has deferred urology consultation. No hesitancy but has some urgency. Some nocturia is unchanged. No postvoid dribbling dysuria or hematuria. No pelvic pain. Rare arthralgia. Overall feels great and enjoys his lifestyle Physical Exam The physical exam is generally normal. Patient appears well, alert and oriented x 3, pleasant, cooperative. Vitals are as noted. No carotid bruits. Neck supple, no abnormal adenopathy, thyroid lesions or masses. Ears, nose and throat are normal without acute findings. Lungs are clear to auscultation. Heart is regular, without murmurs, gallops or ectopy. Abdomen is soft, non tender, without masses, hepatosplenomegaly, or bruits. Normal BS evident. He defers YANIV. Extremities are normal without edema. Peripheral pulses are fair. No worrisome skin lesions. Screening neurological exam is normal without focal deficits. Objective : BP (!) 158/82 Pulse 68 Temp 36.3 C (97.4 F) (Temporal) Ht 5' 8 (1.727 m) Wt 168 lb (76.2 kg) SpO2 100% BMI 25.54 kg/m No results found. Subjective : Health Risk Assessment: General: General In general, how would you say your health is?: Very good In the past 7 days, have you experienced any of the following: New or Increased Pain, New or Increased Fatigue, Loneliness, Social Isolation, Stress or Anger?: No Do you get the social and emotional suppport you need?: Yes Health Habits/Nutrition: Health Habits / Nutrition On average, how many days per week do you engage in moderate to strenous exercise (like a brisk walk)?: 5 days On average, how man minutes do you engage in exercise at this level?: 30 min Have you lost any weight without trying in the past 3 months? : No Have you seen the dentist within the past year?: (!) No Hearing/ Vision: Hearing / Vision Do you or your family notice any trouble with your hearing that hasn't been managed with hearing aids?: No Do you have difficulty driving, watching TV, or doing any of your daily activities because of your eyesight?: No Have you had an eye exam within the past year?: Yes No results found. Safety: Safety Do you have a working smoke detector?: Yes Do you have any tripping hazards - loose or unsecured carpets or rugs?: No Do you have any tripping hazards - clutter in doorways, halls, or stairs?: No Do you have either shower bars, grab bars, non-slip mats or non-slip surfaces in your shower or bathtub? : Yes Do all your stairways have a railing or banister? : Yes Do you fasten your seatbelt when you are in a car?: Yes ADL: ADL In the past 7 days, did you need help from others to perform any of the following everyday activities: Eating, dressing, grooming,bathing, toileting, or walking / balance? : No In the past 7 days, did you need help from others to take care of any of the following: laundry, housekeeping, banking / finances,shopping, telephone use, food preparation, transportation, or taking medications? : No Living Will: Living Will Do you have a living will?: Yes Cognitive: Cognitive Screening: Mini-Cog Clock Drawing Test (CDT): 2 Words Recalled: 3 Total Score: 5 Total Score Interpretation: Normal Mini-Cog Fall Risk: Fall Risk One or more falls in the last year:: No Advised to use a cane or walker to get around safely:: No Feels unsteady when walking:: No Steadies self on furniture while walking at home:: No Worried about falling:: No Depression Screening: Over the past 2 weeks, how often have you been bothered by any of the following problems? Little interest or pleasure in doing things: Not at all Feeling down, depressed, or hopeless: Not at all Patient Health Questionnaire-2 Score: 0 Interventions: Patient declines any further evaluation / treatment for this issue Tobacco Use: Social History Tobacco Use Smoking Status Former Current packs/day: 0.00 Types: Cigarettes Quit date: 08/17/1989 Years since quittin.8 Smokeless Tobacco Never Alcohol Use: Audit Alcohol Screening Q1: How often do you have a drink containing alcohol?: 2-3 times a week Q2: How many drinks containing alcohol do you have on a typical day when you are drinking?: 1 or 2 Q3: How often do you have six or more drinks on one occasion?: Never Audit-C Score: 3 Skip to questions 9-10?: 1 Q4: How often during the last year have you found that you were not able to stop drinking once you had started?: Never Q5: How often during the last year have you failed to do what was normally expected from you because of drinking?: Never Q6: How often during the last year have you needed an alcoholic drink first thing in the morning to get yourself going after a night of heavy drinking?: Never Q7: How often during the last year have you had a feeling of guilt or remorse after drinking?: Never Q8: How often during the last year have you been unable to remember what happened the night before because you had been drinking?: Never Q9: Have you or someone else been injured as a result of your drinking?: No Q10: Has a relative, friend, doctor, or another health professional expressed concern about your drinking or suggested you cut down?: No Audit Total Score: 3 Interventions: Declines intervention 1. Essential hypertension Uncontrolled, increase Norvasc and continue lisinopril, and check BP 4 weeks - CBC auto differential; Future - Comprehensive metabolic panel; Future - CBC auto differential - Comprehensive metabolic panel 2. Hypercholesterolemia Stable, check lab continue Lipitor - Lipid panel; Future - Lipid panel 3. Elevated PSA, less than 10 ng/ml Recurrent, concerning, Tung discussion the patient should see urologist for biopsy to exclude cancer if elevating - PSA Total (Screening); Future - PSA Total (Screening) 4. Encounter for subsequent annual wellness visit (AWV) in Medicare patient (Primary) Stable, continue low-fat low-carb meals with cardio exercise. 5. Prostate cancer screening - PSA Total (Screening); Future - PSA Total (Screening) 6. Positive colorectal cancer screening using Cologuard test He defers colonoscopy 7. Erectile dysfunction, unspecified erectile dysfunction type Stable, continue Viagra 8. Routine general medical examination at health care facility documented in this encounter [facility] 06-28-2024 Instructions Nai Goodwin DO - 06/28/2024 4:00 PM EST Personalized Preventative Plan for Jamee Green - 06/28/2024 Medicare offers a range of preventative health benefits. Some of the tests and screenings are paid in full while others may be subject to a deductible, co-insurance, and / or copay. Some of these benefits include a comprehensive review of your medical history including lifestyle, illnesses that may run in your family, and various assessments and screenings as appropriate. After reviewing your medical record and screening and assessments performed today, your provider may have ordered immunizations, labs, imaging, and / or referrals for you. A list of these orders (if applicable) as well as your Preventative Care list are included within your After Visit Summary for your review. Other Preventative Recommendations: A preventive eye exam by an artificial glass eye maker is recommended every 1-2 years to screen for glaucoma, cataracts, macular degeneration, and other eye disorders. A preventive dental visit is recommended every 6 months. Try to get at least 150 minutes of exercise per week or 10,000 steps per day on a pedometer. You need 1200-1500mg of calcium and [id number] international units of vitamin D per day. It is possible to meet your calcium requirement with diet alone, but a vitamin D supplement is usually necessary to meet this goal. When exposed to the sun, use a sunscreen that protects against both UVA and UVB radiation with an SPF of 30 or greater. Reapply every 2-3 hours or after sweating, drying off with a towel, or swimming. Always wear a seat belt when traveling in a car. Always wear a helmet when riding a bicycle or a motorcycle documented in this encounter [facility] 04-21-2024 Telephone encounter Note RX loaded Next ov 08/24/23 [facility] 04-21-2024 Miscellaneous Notes RX loaded Next ov 08/24/23 documented in this encounter [facility] 08-24-2023 History of Present illness Narrative Images from the original note were not included. [facility] [address] [place] [address] [address] [facility] [id number] Visit type: Established Patient Reason for Visit: Follow-up (6 month med check) Assessment / Plan: Jamee was seen today for follow-up. Diagnoses and all orders for this visit: Essential hypertension (Primary) Comments: Stable, continue lisinopril and amlodipine Orders: - CBC auto differential; Future - Comprehensive metabolic panel; Future - CBC auto differential - Comprehensive metabolic panel Hypercholesterolemia Comments: Stable, continue Lipitor Orders: - Lipid panel; Future - Lipid panel Elevated PSA, less than 10 ng/ml Comments: Noted, tung discussion that he needs urology consultation if elevated Orders: - PSA, total and free; Future - PSA, total and free Other orders - amLODIPine (Norvasc) 2.5 MG tablet; Take 1 tablet (2.5 mg) by mouth daily. - atorvastatin (Lipitor) 10 MG tablet; Take 1 tablet (10 mg) by mouth daily. - lisinopril 20 MG tablet; Take 1 tablet (20 mg) by mouth 2 times daily. - sildenafil (Viagra) 100 MG tablet; Take 1 tablet (100 mg) by mouth Daily as needed for erectile dysfunction (as needed for erectile dysfunction). Subjective: Patient ID: Jamee Green is a 73 y.o. male. 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 He feels great. Eating sensibly. Exercise routinely boxing and even playing basketball. Immensely enjoys traveling with his motorcycle. A few issues however. Has failed to follow-up with urology referral for elevated PSA. He has a positive Cologuard but not interested in evaluation. Review of Systems denies recent earache sore throat or cough. Defers vaccination. No chest pain or dyspnea. No heartburn or dysphagia. Bowels are regular. No melena or blood. No change in urine flow. Rare arthralgia. No Known Allergies Current Outpatient Medications on File Prior to Visit Medication Sig Dispense Refill [DISCONTINUED] amLODIPine (Norvasc) 2.5 MG tablet Take 1 tablet (2.5 mg) by mouth daily. 90 tablet 0 [DISCONTINUED] atorvastatin (Lipitor) 10 MG tablet Take 1 tablet (10 mg) by mouth daily. 90 tablet 0 [DISCONTINUED] lisinopril 20 MG tablet Take 1 tablet (20 mg) by mouth 2 times daily. 180 tablet 0 [DISCONTINUED] sildenafil (Viagra) 100 MG tablet Take 1 tablet (100 mg) by mouth Daily as needed for erectile dysfunction (as needed for erectile dysfunction). 8 tablet 2 No current facility-administered medications on file prior to visit. Patient Active Problem List Diagnosis Family history of coronary artery disease in brother Positive colorectal cancer screening using Cologuard test Essential hypertension Hypercholesterolemia Elevated PSA, less than 10 ng/ml Social History Tobacco Use Smoking status: Former Packs/day: 1 Types: Cigarettes Quit date: 08/17/1989 Years since quittin.0 Smokeless tobacco: Never Substance Use Topics Alcohol use: Yes Past Surgical History: Procedure Laterality Date MULTIPLE TOOTH EXTRACTIONS dentures Family History Problem Relation Name Age of Onset Tuberculosis Mother age 39, Alcohol abuse Father age 58 Heart failure Father smoker Accidental Sister Madeline in MVA Lung cancer Sister Grace age 64, SMOKER No Known Problems Brother Francisco Pulmonary embolism Brother Jose F age 39 Hypertension Brother Andriy Coronary artery disease Brother Maru CABG age 62, smoker Diabetes Maternal Grandfather Substance Abuse Paternal Grandfather Objective: BP 134/80 Pulse 68 Temp 36.5 C (97.7 F) (Temporal) Ht 5' 8 (1.727 m) Wt 175 lb (79.4 kg) SpO2 97% BMI 26.61 kg/m Physical Exam Exam was unremarkable. Very pleasant and engaging. Blood pressure recheck excellent. No JVD adenopathy or neck masses. No carotid bruits. No thyroid lesions. Heart is regular without gallops murmurs or ectopy. Lungs are clear. Abdomen soft nontender without pain hepatosplenomegaly masses bruits or ascites. Femoral pedal pulses are well. No edema. documented in this encounter [facility] 07-29-2023 Telephone encounter Note Rx loaded Next ov 08/24/23 [facility] 07-29-2023 Miscellaneous Notes Rx loaded Next ov 08/24/23 documented in this encounter [facility] 12-10-2022 Telephone encounter Note Orders pended for doctor signature [facility] 12-10-2022 Miscellaneous Notes Orders pended for doctor signature ----- Message from Chapis Joshi MA sent at 12/10/2022 8:17 AM EDT ----- Patient says he agrees to referral. documented in this encounter [facility] 12-10-2022 Telephone encounter Note ----- Message from Chapis Joshi MA sent at 12/10/2022 8:17 AM EDT ----- Patient says he agrees to referral. [facility] 12-08-2022 History of Present illness Narrative Images from the original note were not included. [facility] [address] [place] [id number] Dept: [phone] Dept Chief Complaint: Jamee Green is an 72 y.o. male here for an annual wellness visit. Assessment/Plan : Problem List Items Addressed This Visit Circulatory Essential hypertension Relevant Orders CBC auto differential Comprehensive metabolic panel Other Hypercholesterolemia Positive colorectal cancer screening using Cologuard test Other Visit Diagnoses Encounter for subsequent annual wellness visit (AWV) in Medicare patient - Primary Elevated PSA, less than 10 ng/ml Relevant Orders PSA Diagnostic I have reviewed and reconciled the medication list with the patient today. Current Outpatient Medications Medication Sig Dispense Refill sildenafil (Viagra) 100 MG tablet Take 1 tablet (100 mg) by mouth Daily as needed for erectile dysfunction (as needed for erectile dysfunction). 8 tablet 2 amLODIPine (Norvasc) 2.5 MG tablet Take 1 tablet (2.5 mg) by mouth daily. 30 tablet 5 atorvastatin (Lipitor) 10 MG tablet Take 1 tablet (10 mg) by mouth daily. 90 tablet 1 lisinopril 20 MG tablet Take 1 tablet (20 mg) by mouth 2 times daily. 180 tablet 1 No current facility-administered medications for this visit. Tobacco Med Hx Surg Hx Fam Hx The following health maintenance schedule was reviewed with the patient and provided in printed form in the after visit summary: Health Maintenance Topic Date Due Hepatitis B Vaccines (1 of 3 - 3-dose series) Never done Hepatitis C Screening Never done DTaP/Tdap/Td Vaccines (1 - Tdap) Never done Zoster Vaccines (1 of 2) Never done COVID-19 Vaccine (3 - Booster for Moderna series) 03/07/2021 Colorectal Cancer Screening 09/09/2022 Influenza Vaccine (Season Ended) 2023 Lipid Panel 06/23/2027 Pneumococcal Vaccine: 65+ Years Completed HIB Vaccines Aged Out IPV Vaccines Aged Out Hepatitis A Vaccines Aged Out Meningococcal Vaccine Aged Out Rotavirus Vaccines Aged Out HPV Vaccines Aged Out List of current healthcare providers: Patient Care Team: Nai Goodwin DO as PCP - General Orders Placed This Encounter Procedures PSA Diagnostic Standing Status: Future Standing Expiration Date: 12/09/2023 CBC auto differential Standing Status: Future Number of Occurrences: 1 Standing Expiration Date: 12/09/2023 Comprehensive metabolic panel Standing Status: Future Number of Occurrences: 1 Standing Expiration Date: 12/09/2023 Subjective : Annual wellness exam for non-smoker with history of hyperlipidemia and hypertension. Overall feeling pretty well. Compliant with meds. Blood pressure slightly over 140 at home. Stays very active. Enjoys motorcycle riding and exercising regularly. Review of Systems no recent earache sore throat or cough. Denies chest pain exertional dyspnea PND orthopnea claudication or edema. No heartburn or dysphagia. No bowel changes. No melena or blood. Will be following up with gastroenterology for follow-up with positive Cologuard exam. No change in urine flow. Rare nocturia denies postvoid dribbling hematuria or dysuria. Slight elevated PSA above 4 last office visit. No arthralgias. No skin changes. Feels pretty upbeat overall no new medical concerns Physical Exam Health Risk Assessment: General In general, how would you say your health is?: Very good In the past 7 days, have you experienced any of the following: New or Increased Pain, New or Increased Fatigue, Loneliness, Social Isolation, Stress or Anger?: No Do you get the social and emotional suppport you need?: Yes Interventions: No concerns Health Habits / Nutrition On average, how many days per week do you engage in moderate to strenous exercise (like a brisk walk)?: 7 days On average, how man minutes do you engage in exercise at this level?: 150 + min Have you lost any weight without trying in the past 3 months? : No Have you seen the dentist within the past year?: (!) No (has false teeth) Interventions: No need for dental exams, has dentures Hearing / Vision Do you or your family notice any trouble with your hearing that hasn't been managed with hearing aids?: No Do you have difficulty driving, watching TV, or doing any of your daily activities because of your eyesight?: No Have you had an eye exam within the past year?: Yes No results found. Interventions: Vision concerns: Examinations up-to-date Safety Do you have a working smoke detector?: Yes Do you have any tripping hazards - loose or unsecured carpets or rugs?: No Do you have any tripping hazards - clutter in doorways, halls, or stairs?: No Do you have either shower bars, grab bars, non-slip mats or non-slip surfaces in your shower or bathtub? : Yes Do all your stairways have a railing or banister? : Not Applicable Do you fasten your seatbelt when you are in a car?: Yes Interventions: No concerns ADL In the past 7 days, did you need help from others to perform any of the following everyday activities: Eating, dressing, grooming,bathing, toileting, or walking / balance? : No In the past 7 days, did you need help from others to take care of any of the following: laundry, housekeeping, banking / finances,shopping, telephone use, food preparation, transportation, or taking medications? : No Interventions: Patient declines any further evaluation / treatment for this issue Living Will Do you have a living will?: Yes Interventions: Patient declines ACP discussion / assistance Cognitive: Cognitive Screening: Mini-Cog Clock Drawing Test (CDT): 2 Words Recalled: 3 (used words red dog cat) Total Score: 5 Total Score Interpretation: Normal Mini-Cog Interventions: Patient declines any further evaluation / treatment for cognitive impairment Fall Risk: Fall Risk One or more falls in the last year:: No Advised to use a cane or walker to get around safely:: No Feels unsteady when walking:: No Steadies self on furniture while walking at home:: No Worried about falling:: No Interventions: Patient declines any further evaluation / treatment for this issue Depression Screening: Over the past 2 weeks, how often have you been bothered by any of the following problems? Little interest or pleasure in doing things: Not at all Feeling down, depressed, or hopeless: Not at all Patient Health Questionnaire-2 Score: 0 Interventions: Patient advised to follow-up in this office for further evaluation and treatment within not an issue Patient declines any further evaluation / treatment for this issue Patient declines any further evaluation / treatment for this issue Tobacco Use: Social History Tobacco Use Smoking Status Former Packs/day: 1.00 Types: Cigarettes Quit date: 08/17/1989 Years since quittin.3 Smokeless Tobacco Never Interventions: Not applicable Alcohol Use: Interventions: Not applicable Drug Use: Interventions: Not applicable Objective : BP (!) 146/88 Pulse 68 Temp 36.6 C (97.8 F) (Temporal) Ht 5' 8 (1.727 m) Wt 176 lb (79.8 kg) SpO2 98% BMI 26.76 kg/m No results found. 1. Essential hypertension Uncontrolled, continue lisinopril and add amlodipine 2.5 mg daily. BP check in 4 weeks - CBC auto differential; Future - Comprehensive metabolic panel; Future - CBC auto differential - Comprehensive metabolic panel 2. Hypercholesterolemia Stable, continue Lipitor 3. Elevated PSA, less than 10 ng/ml Noted concern, recheck lab might see urology - PSA Diagnostic; Future 4. Encounter for subsequent annual wellness visit (AWV) in Medicare patient Stable, continue multivitamin, calcium and vitamin D and exercise under 50 minutes/week 5. Positive colorectal cancer screening using Cologuard test Noted concern, GI consultation pending documented in this encounter [facility] 12-08-2022 Instructions Nai Goodwin DO - 12/08/2022 11:00 AM EDT Continue all meds as is and begin Norvasc 2.5 mg each evening. Blood pressure check with staff in 4 weeks. Obtain colonoscopy as recommended. Continue low-fat and low-carb meals with exercise as you are. documented in this encounter [facility] Diagnosis Encounter for subsequent annual wellness visit (AWV) in Medicare patient- Primary Essential hypertension Unspecified essential hypertension Hypercholesterolemia Pure hypercholesterolemia Elevated PSA, less than 10 ng/ml Positive colorectal cancer screening using Cologuard test Routine general medical examination at health care facility Routine general medical examination at a health care facility [facility]* Diagnosis Elevated PSA, less than 10 ng/ml documented [facility] this [facility]* Diagnosis Essential hypertension- Primary Unspecified essential hypertension Hypercholesterolemia Pure hypercholesterolemia Elevated PSA, less than 10 ng/ml documented [facility] this [facility]* Diagnosis Encounter for subsequent annual wellness visit (AWV) in Medicare patient- Primary Essential hypertension Unspecified essential hypertension Hypercholesterolemia Pure hypercholesterolemia Elevated PSA, less than 10 ng/ml Prostate cancer screening Special screening for malignant neoplasm of prostate Positive colorectal cancer screening using Cologuard test Erectile dysfunction, unspecified erectile dysfunction type Routine general medical examination at health care facility Routine general medical examination at a health care facility [facility] this [facility]* Diagnosis Essential hypertension- Primary Unspecified essential hypertension Hypercholesterolemia Pure hypercholesterolemia Elevated PSA, less than 10 ng/ml [facility])* Consultation (Routine) - Pending Review Specialty Diagnoses / Procedures Referred By Shoaib estrada Referred To Contact Urology Diagnoses Elevated PSA, less than 10 ng/ml Procedures [place] OFFICE/OUTPATIENT NEW HIGH MDM 60-74 MINUTES Nai Goodwin DO [address] [place] [id number] Gerard Gonzalez MD [address] [place] [address] Rd [address] [place] [address] Referral ID Status Reason Start Date Expiration Date Visits Requested Visits Authorized [id number] Pending Review Specialty Services Required 12/10/2022 12/10/2023 1 1 [facility] Health Summary Purpose Family History No Family History Records FoundNo Family History Records Found Advance Directives No Advanced Directives Records FoundNo Advanced Directives Records Found Additional Source Comments (unrecognized sect ion and content) No Status Records FoundNo Status Records Found INFORMATION SOURCE (unrecogn ized section and content) DATE CREATED AUTHOR 01/24/2022 [facility] DATE CREATED AUTHOR AUTHOR'S ORGANIZ ATION 12/29/2024 [facility] Reason for Visit (unrecogniz ed section and content) Reason Comments Medicare Annual Wellness Visit Subsequen t Wants Viagra name brand Reason Onset Date Comments Orders 12/10/2022 Urology Reason Onset Date Comments Med Refill 07/29/2023 Reason Comments Follow-up 6 month med check Reason Onset Date Comments Med Refill 04/21/2024 Reason Comments Medicare Annual Wellness Visit Subsequen t Reason Comments Follow-up Med check Care Teams (unrecognized sec tion and content) General Merchandise Manager Relationship Specialty Start Date End Date Nai Goodwin, [address] [id number] PCP - General 08/24/19 General Merchandise Manager Relationship Specialty Start Date End Date Nai Goodwin DO [address], [place] [id number] PCP - General 08/24/19 General Merchandise Manager Relationship Specialty Start Date End Date Nai Goodwin, [address] [place] [address] PCP - General 08/24/19 General Merchandise Manager Relationship Specialty Start Date End Date Nai Goodwin DO [address] [place] [address] PCP - General 08/24/19 General Merchandise Manager Relationship Specialty Start Date End Date Nai Goodwin DO [address] [place] [address] PCP - General 08/24/19 General Merchandise Manager Relationship Specialty Start Date End Date Nai Goodwin DO [address] [place] [address] PCP - General 08/24/19 General Merchandise Manager Relationship Specialty Start Date End Date Nai Goodwin DO [address] [facility] [address] [place] [address] PCP - General 08/24/19 General Merchandise Manager Relationship Specialty Start Date End Date Nai Goodwin DO [address] [place] [address] PCP - General 08/24/19 FOR RECORDS PERTAINING TO PATIENTS WHO ARE OR HAVE BEEN ENROLLED IN A CHEMICAL DEPENDENCY/SUBSTANCEABUSE PROGRAM, SOME INFORMATION MAY BE OMITTED. This clinical summary was aggregated from multiple sources. Caution should be exercised in using it in the provision of clinical care. This summary normalizes information from multiple sources, and as a consequence, information in this document may materially change the coding, format and clinical context of patient data. In addition, data may be omitted in some cases. CLINICAL DECISIONS SHOULD BE BASED ON THE PRIMARY CLINICAL RECORDS. [facility] [employer] [facility]. provides no warranty or guarantee of the accuracy or completeness of information in this document.
[2025-07-14] MEDS: Lactated Ringers 1,000 ML 15 ML IV (06:48)
--- NOTE | 2025-07-14 07:04 | PRE.ANES_ITS ---
ASA Classification* ASA Classification ASA Classification: 2 Assessment & Plan Anesthesia* Anesthesia Assessment Anesthesia Assessment: Discussed sedation and/or anesthesia options, risks, benefits, and alternatives with patient/parents/legal guardian/POA. Questions invited. The patient/parents/legal guardian/POA seems to understand and agrees to proceed with anesthesia plan. Reviewed the physical assessment, medical history, allergy history and patient home medications list prior to surgery/procedure/anesthetic and documented any changes. Performed airway and anesthesia risk assessments. Anesthesia Type Anesthesia Type: MAC Anesthesia Focused Assessment* Temperature: 96.7 F Pulse Rate: 71 Blood Pressure: 147/74 Respiratory Rate: 16 Pulse Ox: 100 Airway Assessment Mouth opens: >3 cm Mallampati Score: II Labs Anesthesia Preop lab: CBC WBC, (4.4-11.0) 6.5 K/mm3 07/07/25, 11:55 RBC, (4.6-6.2) 4.03 M/mm3 L 07/07/25, 11:55 Hgb, (13.0-16.5) 12.2 g/dL L 07/07/25, 11:55 Hct, (40-54) 36.2 % L 07/07/25, 11:55 Plt Count, (150-450) 283 K/mm3 07/07/25, 11:55 CHEMISTRY Potassium, (3.3-5.1) 4.3 mmol/L 07/07/25, 11:55 Sodium, (133-145) 135 mmol/L 07/07/25, 11:55 BUN, (4-19) 13 mg/dL 07/07/25, 11:55 Creatinine, (0.70-1.20) 1.00 mg/dL 07/07/25, 11:55 Glucose, (70-99) 100 mg/dL H 07/07/25, 11:55 COAG Pre-Assessment Diagnosis/Proposed Procedure Planned Operative Procedure(s): COLONOSCOPY Anesthesia History 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 When Was Last Pacemaker Check QUESTION #4 FULL TEXT: You/Your Family Experience fever (hyperthermia) with Anesthesia Last Oral Intake Last Oral intake: Last Oral Intake NPO since 03:00 07/14/25 06:45 Meds taken in AM with sips of Yes 07/14/25 06:45 water? 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 Female No 07/11/25 15:08 HX of Motion Sickness No 07/11/25 15:08 HX of N/V After Surgery No 07/11/25 15:08 Non-Smoker Yes 07/11/25 15:08 Duration of Surgery greater No 07/11/25 15:08 than 60 minutes Number of Risk Factors 1 07/11/25 15:08 PONV Score Low Risk 07/11/25 15:08 Height & Weight Height & Weight: Anesthesia: Height & Weight Height 5 ft 9 in 07/14/25 06:45 Weight: 74 kg 07/14/25 06:45 Body Mass Index (BMI) 24.0 07/14/25 06:45 Respiratory Assessment Respiratory Assessment - maintenance parts technician: Respiratory Tract Infection Hx - maintenance parts technician Hx Respiratory Tract Infection No 07/11/25 15:08 STOP Sleep Apnea STOP Sleep Apnea - maintenance parts technician: STOP Sleep Apnea - maintenance parts technician Hx Hypertension Yes: CONTROLLED ON MED 07/11/25 15:08 Hx Sleep Apnea No 07/11/25 15:08 CPAP BIPAP Do you snore loudly (louder No 07/11/25 15:08 than talking or can be heard Do you often feel tired/ No 07/11/25 15:08 fatigued/ sleepy during daytime? Has anyone observed you stop No 07/11/25 15:08 breathing during sleep? STOP Results Negative 07/11/25 15:08 QUESTION #5 FULL TEXT : Do you snore loudly (louder than talking or can be heard through closed doors)? 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 Specify any problems Hx of Preganancy in last 3 N/A 07/11/25 15:08 Months Nurse Filling Out Transfusion VCHRISTIN 07/11/25 15:08 & Questions: Date: 07/11/25 07/11/25 15:08 Time: 15:09 07/11/25 15:08 Patient unable to answer at this time (ie. confused, unrespo /Reproduction History /Reproductive History - maintenance parts technician: /Reproductive Hx- maintenance parts technician Hx Now No 07/11/25 15:08 Gestational Age (in weeks): EDC: Hx Hx Para Hx Section SAB No 07/11/25 15:08 Does the father of the baby or his family experience fever w Father of the baby Malignant Hypertension history comment Active Medications Active Medications: Current Medications Generic Name Dose Route Start Last Admin Trade Name Freq PRN Reason Stop Dose Admin Lactated Ringer's 1,000 mls @ 15 mls/hr 07/14/25 06:30 07/14/25 06:48 IV 15 mls/hr .Q48H SHANTE Administration PFSH Medical History Wears dentures Wears glasses Former smoker Hypertension Abdominal pain Home Medications ?Medication ?Instructions ?Recorded ?Last Taken ?Type amlodipine 5 mg tablet 5 mg PO DAILY 07/11/2507/13 History atorvastatin 10 mg tablet 10 mg PO DAILY 07/11/2506/18 History lisinopril 20 mg tablet 20 mg PO BID 07/11/25 History Allergy/AdvReac Type Severity Reaction Status Date / Time No Known Allergies Allergy Verified 07/14/25 06:44 Surgical History History of dental surgery Social History Smoking Status: Former smoker Review of Systems (Anesthesia) ROS Narrative System reviewed and no additional complaints, except as documented.
--- NOTE | 2025-07-14 07:45 | COLBX_PTH ---
PATIENT: JAMEE GREEN LOC: EN U#:[id number] AGE/SX: 75/M ROOM: RE07/14/[address]: Dr. Brian Sprague DO : 1950 BED: DIS: 07/14/2025 SPEC #: [id number] RECD: 07/14/25 10:46 STATUS: ADAMS REQ #: [id number] BETHEL: 07/14/25 07:[address]: Brian Sprague DEPT: SURGICAL PATHOLOGY RECD BY: Raffy Sanchez ENTERED: 07/14/25 12:17 SP TYPE: COLON BX OTHR DR: Dr. Aldo Goodwin DO Tissues: A - Cecum, NOS B - COLON BIOPSY C - Sigmoid colon biopsy D - Sigmoid colon biopsy Procedures: Surgery Specimen Level IV HEADER OPERATION: Colonoscopy, polypectomy, biopsy PRE-OP DIAGNOSIS: Cancer, metastatic to lung, colon cancer, abdominal pain, acute TISSUE SUBMITTED: A- Cecal mass biopsy, B- Hepatic flexure polyp, C- Sigmoid polyp, ADDENDUM ADDENDUM D- Sigmoid mass ADDENDUM ADDENDUM 07/17/2025 14:36 ADDENDUM 07/17/2025 14:36 ADDENDUM 07/17/2025 14:36 ADDENDUM 07/17/2025 14:36 ADDENDUM 07/17/2025 14:36 This addendum is to report the IHC findings for mismatch repair proteins (MMR) on part A: A. > MICROSCOPIC DIAGNOSIS A. Colon, cecum, mass, biopsy: - Invasive adenocarcinoma. - IHC for mismatch repair proteins (MMR) is PENDING and will be reported in an addendum. B. Colon, hepatic flexure, polyp, polypectomy: - Tubulovillous adenoma, multiple fragments. C. Colon, sigmoid, polyps, polypectomy: - Tubulovillous adenoma with focal high-grade dysplasia (one fragment). - Tubular adenoma (two fragments). - Traditional serrated adenoma (one fragment). - Hyperplastic polyp (one fragment). D. Colon, sigmoid, mass, biopsy: - Tubulovillous adenoma with prolapse features and misplaced epithelium, surgical margin free. MICROSCOPIC DESCRIPTION Slides are reviewed. GROSS DESCRIPTION A. Received in fixative is one container labeled with the patient's name and designated Cecal mass biopsy. The specimen consists of multiple irregular fragments of cortez tissue that in aggregate measure 2.1 x 0.8 x 0.1 cm. The specimen is totally submitted in one cassette. B. Received in fixative is one container labeled with the patient's name and designated Hepatic flexure polyp. The specimen consists of a 1.4 x 0.8 x 0.1 cm aggregate of cortez tissue fragments and a 1.6 x 1.1 x 0.6 cm red granular lobulated polyp. The resection margin of the polyp is inked green and it is serially sectioned. Entirely submitted in 2 cassettes as follows: B1: Aggregate of tissue fragmentsB2: Polyp C. Received in fixative is one container labeled with the patient's name and designated Sigmoid polyps. The specimen consists of multiple irregular fragments of cortez tissue that in aggregate measure 1.5 x 0.7 x 0.3 cm. The specimen is totally submitted in one cassette. D. Received in fixative is one container labeled with the patient's name and designated Sigmoid mass. The specimen consists of a 2.5 x 2.8 x 1.5 cm red, lobulated, focally necrotic, granular polyp with an attached stalk, 2.3 cm in length by 1.0 cm in diameter. The resection margin is inked black and shaved. Upon sectioning the polyp fragmented into multiple pieces. Entirely submitted in 5 cassettes to include the margin in cassette D1. [place] 07/14/2025 [facility]:[id number] ADDENDUM ADDENDUM ADDENDUM ADDENDUM 07/17/2025 14:36 ADDENDUM 07/17/2025 14:36 ADDENDUM 07/17/2025 14:36 ADDENDUM 07/17/2025 14:36 ADDENDUM 07/17/2025 14:36 This addendum is to report the IHC findings for mismatch repair proteins (MMR) on part A: A. >
--- NOTE | 2025-07-14 08:00 | PCM.HP.STD ---
HPI - General General Date of Admission: 07/14/25 Date of Service: 07/14/25 Chief Complaint: Abnormal CT scan HPI Narrative JAMEE GREEN, is a 75-year-old male presented to the emergency room chief complaint of abdominal pain. Patient states that on Thursday he was putting some heavy things back in his barn. He went inside and ate a salad and developed pain on the right side of his abdomen. States it was pretty intense and he was hesitant to really to eat much and wondered if perhaps he had some food poisoning but he states he never really got sick. Pain seemed to be worse with movement being upright as well as laying down. Last night he wrestled to sleep and eventually went and sat out of the chair was able to sleep and today he is feeling better but still has some point tenderness in the right mid abdomen. No changes in bowel movements. No urinary symptoms no fevers. He has not noticed any bulging. No testicular pain no radiation to the back. CT ab pelvis without oral contrast was obtained. This is concerning for a lung metastasis as well as colon cancer. He is here today for endoscopic evaluation of abnormal CT scan. [facility] Medical History Wears dentures Wears glasses Former smoker Hypertension Abdominal pain Home Medications ?Medication ?Instructions ?Recorded ?Last Taken ?Type amlodipine 5 mg tablet 5 mg PO DAILY 07/11/25 07/13/25 History atorvastatin 10 mg tablet 10 mg PO DAILY 07/11/25 07/13/25 History lisinopril 20 mg tablet 20 mg PO BID 07/11/25 07/13/25 History Allergy/AdvReac Type Severity Reaction Status Date / Time No Known Allergies Allergy Verified 07/14/25 06:44 Surgical History History of dental surgery Social History Smoking Status: Former smoker ROS Constitutional Constitutional: Denies fatigue, fever(s), poor appetite, weight gain or weight loss Gastrointestinal Gastrointestinal: Denies belching, bloating, change in bowel habits, change in stool character, chewing difficulty, coffee ground emesis, constipation, cramping, diarrhea, dyspepsia, dysphagia, early satiety, excessive flatus, fecal incontinence, heartburn, hematemesis, hematochezia, hemorrhoids, loose stools, melena, nausea, odynophagia, rectal bleeding, tenesmus, vomiting or weight changes Vital Signs Vital Signs Vital Signs: 07/14/25 06:45 07/14/25 06:45 07/14/25 06:45 Temperature 96.7 F L Temperature Source Temporal Pulse Rate 71 Respiratory Rate 16 Respiratory Pattern Normal Blood Pressure 147/74 H Blood Pressure Mean 98 Blood Pressure Source Monitor Blood Pressure Position Semi-Fowlers Blood Pressure Location Right Arm Baseline BP 147/74 Pulse Ox 100 Oxygen Delivery Method Room Air 07/14/25 07:05 Temperature 96.7 F L Temperature Source Pulse Rate 71 Respiratory Rate 16 Respiratory Pattern Blood Pressure 147/74 H Blood Pressure Mean Blood Pressure Source Blood Pressure Position Blood Pressure Location Baseline BP Pulse Ox 100 Oxygen Delivery Method Weight Weight: 163 lb 2.273 oz Body Mass Index (BMI) 24.0 Physical Exam Const alert, oriented x3, no apparent distress and healthy appearing General Appearance: cooperative GI normal to inspection, nondistended, normoactive bowel sounds, soft to palpation, non-tender and non-distended Percussion: normal to percussion Rectal Exam: deferred Assessment & Plan Assessment/Plan (1) Cancer, metastatic to lung: (2) Colon cancer: (3) Abdominal pain, acute: PLAN: He will undergo colonoscopy to evaluate his lower GI tract. He was explained alternatives, risk and benefits include not withstanding bleeding, infection, subs, perforation, need for emergent . He will have an ASA of 3.
[2025-07-14] MEDS: Lidocaine 1% (5 ml sdv) 5 ML Vial IV (08:09)
[2025-07-14] MEDS: fentaNYL 100 MCG/2 ML Ampul IV (08:47)
--- NOTE | 2025-07-14 08:57 | PCM.POST.ANE ---
Anesthesia: Postop Eval I Current Vital Signs Temperature: 97 F Pulse Rate: 57 Blood Pressure: 99/66 Respiratory Rate: 9 Pulse Ox: 100 Oxygen Delivery Method: Room Air Assessment Airway patent: Yes Spontaneous unlabored respirations: Yes Mental status: Awake and Calm nausea: No Vomiting: No Anesthesia Complication: No Fluid Hydration Crystalloid volume administer (ml): 450 Total IV fluid infused: 450 Progress Note Anesthesia document: Postop Eval 1 completed: Yes
--- NOTE | 2025-07-14 09:04 | OP.PROVAT_ITS ---
07/14/2025 Aldo Goodwin Re : Colonoscopy procedure for Sukumar Yates Dear Christa This procedure was performed on Monday, July 14, 2025. My impressions and recommendations are as follows: Impressions : - Diverticulosis in the recto-sigmoid colon, in the sigmoid colon, at the splenic flexure and at the hepatic flexure. - Five 1 to 2 mm polyps in the sigmoid colon, removed with a hot snare. Resected and retrieved. - Four 1 to 2 mm polyps at the hepatic flexure, removed with a hot snare. Resected and retrieved. - Likely malignant partially obstructing tumor in the cecum. Biopsied. - The examination was otherwise normal on direct and retroflexion views. Recommendations : - Discharge patient to home. - Resume previous diet. - Continue present medications. - Await pathology results. - Repeat colonoscopy in 1 year for surveillance. My findings are described in the full procedure note, which is enclosed. If I can be of further assistance, please feel free to contact me at . Sincerely, Brian Sprague, 07/14/2025 9:04:02 AM This report has been signed electronically.
--- NOTE | 2025-07-14 09:04 | OP.COLON_ITS ---
Patient Name: Sukumar Yates Procedure Date: 07/14/2025 8:06 AM Date of : 1950 Age: 75 Procedure: Colonoscopy Indications: Iron deficiency anemia, Abnormal CT of the GI tract Providers: Brian Sprague DO Referring MD: Aldo Goodwin Medicines: Monitored Anesthesia Care Patient Profile: This is a 75 year old male. Refer to note in patient chart for documentation of history and physical. Last Colonoscopy: none. The patient's first colonoscopy is today. Complications: No immediate complications. Procedure: Pre-Anesthesia Assessment: - Prior to the procedure, a History and Physical was performed, and patient medications and allergies were reviewed. The patient is competent. The risks and benefits of the procedure and the sedation options and risks were discussed with the patient. All questions were answered and informed consent was obtained. Patient identification and proposed procedure were verified by the physician in the pre-procedure area. Mental Status Examination: alert and oriented. Airway Examination: normal oropharyngeal airway and neck mobility. Respiratory Examination: clear to auscultation. CV Examination: normal. Prophylactic Antibiotics: The patient does not require prophylactic antibiotics. Prior Anticoagulants: The patient has taken no anticoagulant or antiplatelet agents except for NSAID medication. ASA Grade Assessment: II - A patient with mild systemic disease. After reviewing the risks and benefits, the patient was deemed in satisfactory condition to undergo the procedure. The anesthesia plan was to use monitored anesthesia care (MAC). Immediately prior to administration of medications, the patient was re-assessed for adequacy to receive sedatives. The heart rate, respiratory rate, oxygen saturations, blood pressure, adequacy of pulmonary ventilation, and response to care were monitored throughout the procedure. The physical status of the patient was re-assessed after the procedure. After I obtained informed consent, the scope was passed under direct vision. Throughout the procedure, the patient's blood pressure, pulse, and oxygen saturations were monitored continuously. The Colonoscope was introduced through the anus and advanced to the cecum, identified by appendiceal orifice and ileocecal valve. The colonoscopy was performed without difficulty. Scope In: 8:16:20 AM Scope Withdrawal Time 0 hours 16 minutes 18 seconds Scope Out: 8:55:44 AM Total Procedure Duration Time 0 hours 39 minutes 24 seconds Findings: The perianal and digital rectal examinations were normal. A few small-mouthed diverticula were found in the recto-sigmoid colon, sigmoid colon, splenic flexure and hepatic flexure. Five pedunculated, semi-pedunculated and sessile polyps were found in the sigmoid colon. The polyps were 1 to 2 mm in size. These polyps were removed with a hot snare. Resection and retrieval were complete. Verification of patient identification for the specimen was done. Estimated blood loss was minimal. To prevent bleeding after the polypectomy, two hemostatic clips were successfully placed. 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 There was no bleeding at the end of the procedure. Four sessile polyps were found in the hepatic flexure. The polyps were 1 to 2 mm in size. These polyps were removed with a hot snare. Resection and retrieval were complete. Verification of patient identification for the specimen was done. Estimated blood loss was minimal. An ulcerated partially obstructing large mass was found in the cecum. The mass was circumferential. No bleeding was present. This was biopsied with a cold forceps for histology. Verification of patient identification for the specimen was done. Estimated blood loss was minimal. The exam was otherwise without abnormality on direct and retroflexion views. Impression: - Diverticulosis in the recto-sigmoid colon, in the sigmoid colon, at the splenic flexure and at the hepatic flexure. - Five 1 to 2 mm polyps in the sigmoid colon, removed with a hot snare. Resected and retrieved. - Four 1 to 2 mm polyps at the hepatic flexure, removed with a hot snare. Resected and retrieved. - Likely malignant partially obstructing tumor in the cecum. Biopsied. - The examination was otherwise normal on direct and retroflexion views. Recommendation: - Discharge patient to home. - Resume previous diet. - Continue present medications. - Await pathology results. - Repeat colonoscopy in 1 year for surveillance. Procedure Code(s): --- Professional --- 54620, Colonoscopy, flexible; with removal of tumor(s), polyp(s), or other lesion(s) by snare technique 70531, 59, Colonoscopy, flexible; with biopsy, single or multiple CPT copyright 2021 [employer]. All rights reserved. The codes documented in this report are preliminary and upon alarm investigator review may be revised to meet current compliance requirements. Brian Sprague DO 07/14/2025 9:04:02 AM This report has been signed electronically. Number of Addenda: 0 Note Initiated On: 07/14/2025 8:06 AM
--- NOTE | 2025-07-14 09:05 | POSTOPAN2_ITS ---
Anesthesia Postop Eval I Sum Postop Eval Completion status Anesthesia document: Postop Eval 1 completed: Yes Anesthesia Postop Eval I Summary Anesthesia Postop Eval I Summary: Anesthesia Postop Eval I: Assessment Summary Airway patent Yes 07/14/25 08:58 [email or web address] Spontaneous unlabored Yes 07/14/25 08:58 [email or web address] respirations Mental status Awake,Calm 07/14/25 08:58 MUD [email or web address] nausea No 07/14/25 08:58 MUD [email or web address] Vomiting No 07/14/25 08:58 [email or web address] Anesthesia Postop Eval I: Fluid Summary Crystalloid volume administer 450 07/14/25 08:58 MUD [email or web address] (ml) Colloids volume administered ( ml) Blood Product volume administered (ml) Total IV fluid infused 450 07/14/25 08:58 [email or web address] Anesthesia Postop Eval I: Summary Notes Anesthesia Complication No 07/14/25 08:58 [email or web address] Anesthesia Complication Comment: Post-operative progress note Anesthesia: Postop Eval II Evaluation Mental status: Awake and Calm Pain Level: 0 nausea: No Vomiting: No Complications Anesthesia Complication: No
--- NOTE | 2025-07-14 09:05 | PCM.POSTANE2 ---
Anesthesia Postop Eval I Sum Postop Eval Completion status Anesthesia document: Postop Eval 1 completed: Yes Anesthesia Postop Eval I Summary Anesthesia Postop Eval I Summary: Anesthesia Postop Eval I: Assessment Summary Airway patent Yes 07/14/25 08:58 NURSING [email or web address] Spontaneous unlabored Yes 07/14/25 08:58 NURSING ASSISTANT.MDOT respirations Mental status Awake,Calm 07/14/25 08:58 NURSING ASSISTANT.MDOT nausea No 07/14/25 08:58 NURSING ASSISTANT.MDOT Vomiting No 07/14/25 08:58 NURSING [email or web address] Anesthesia Postop Eval I: Fluid Summary Crystalloid volume administer 450 07/14/25 08:58 NURSING ASSISTANT.MDOT (ml) Colloids volume administered ( ml) Blood Product volume administered (ml) Total IV fluid infused 450 07/14/25 08:58 NURSING [email or web address] Anesthesia Postop Eval I: Summary Notes Anesthesia Complication No 07/14/25 08:58 NURSING ASSISTANT.MDOT Anesthesia Complication Comment: Post-operative progress note Anesthesia: Postop Eval II Evaluation Mental status: Awake and Calm Pain Level: 0 nausea: No Vomiting: No Complications Anesthesia Complication: No
== END 2025-07-14 09:48 | disposition home or self-care (01) ==
LOC: EN 06:26 → AC 06:28
PROVIDERS: PCP Family Medicine; Referring Provider Family Medicine; Visit Provider Internal Medicine Gastroenterology
PROC: 0DJD8ZZ Inspection of Lower Intestinal Tract, Via Natural or Artificial Opening Endoscopic (ICD-10-PCS; CPT 45378; principal; 2025-07-14 07:40)
DX: R93.3 Abnormal findings on diagnostic imaging of other parts of digestive tract (principal); C78.00 Secondary malignant neoplasm of unspecified lung; C18.9 Malignant neoplasm of colon, unspecified; D50.9 Iron deficiency anemia, unspecified; Z87.891 Personal history of nicotine dependence; K57.30 Diverticulosis of large intestine without perforation or abscess without bleeding; I10 Essential (primary) hypertension; K63.5 Polyp of colon; R10.9 Unspecified abdominal pain; Z79.899 Other long term (current) drug therapy; R19.09 Other intra-abdominal and pelvic swelling, mass and lump; D12.6 Benign neoplasm of colon, unspecified
CPT/HCPCS: 45385; 45380; 88305

== ENCOUNTER 2025-08-04 07:53 | Outpatient (CLI) | payer MEDICARE, SELFPAY ==
[2025-08-04] VITALS (16 sets, daily range): BP systolic 127–157; BP diastolic 63–92; PULSE 68–80; RESP 11–19; TEMP 36.4; O2SAT 95–100; BMI 24.9
--- NOTE | 2025-08-04 08:06 | CT_ITS ---
PROCEDURE: BIOPSY/INJ OR NEEDLE PLACEMENT 08/04/2025 REASON FOR EXAM: COLON CANCER; LUNG NODULES TECHNIQUE: Procedure Code: CTBX Modality: CT Procedure: BIOPSY/INJ OR NEEDLE PLACEMENT One or more dose reduction techniques were used (e.g., Automated exposure control, adjustment of the mA and/or kV according to patient size, use of iterative reconstruction technique. RADIATION DOSE SUMMARY: DLP: 1056.49 mGycm COMPARISON: CT examination of 07/07/2025 FINDINGS: Conscious sedation was employed for this procedure, with start time of 0933 hours and stop time of 0948 hours. A total of 2 mg intravenous Versed and 50 mcg intravenous fentanyl was employed. Following informed consent, and using standard sterile technique, a CT-guided core biopsy of a right middle lobe mass was performed. 2% lidocaine local anesthesia was followed by placement of a 15 cm 18 gauge [employer] core biopsy system. A total of 6 samples were obtained, and provided to pathology for evaluation. No complication was encountered, in the patient left the department in good condition without significant complaint.. CT/Biopsy/Inj or Needle Placement IMPRESSION: Successful CT-guided right middle lobe core biopsy. Pathology results pending. Reading Location: [place] [id number]
[2025-08-04 08:07] LABS: Hematocrit 38.7 % (40-54); Hemoglobin 13.1 g/dL (13.0-16.5); Immature Granulocytes Count 0.020 X10^3/uL (0.0-0.0); Mean Corp Hgb Conc 33.9 g/dL (32-36); Mean Corpuscular Volume 88.0 fL (80-94); Mean Platelet Vol. 8.8 fl (6.2-12.0); NRBC Flagged by Analyzer 0 % (0-5); Platelet Count 237 K/mm3 (150-450); RBC Distribution Width CV 12.7 % (11.6-14.6); RBC Distribution Width SD 41.4 fl (35.1-43.9); Red Blood Count 4.40 M/mm3 (4.6-6.2); White Blood Count 7.0 K/mm3 (4.4-11.0)
[2025-08-04 08:18] LABS: Partial Thromboplast Time 28.7 Seconds (24.1-36.2); Prothrombin Time (Protime)PT. 12.5 SECONDS (11.7-14.9)
[2025-08-04] MEDS: 0.9% Normal Saline (250mL Bag) 250 ML 15 ML IV (09:32)
[2025-08-04] MEDS: Midazolam 2 MG/2 ML Syringe IV ×2 (09:33→09:39)
[2025-08-04] MEDS: fentaNYL 100 MCG/2 ML Ampul IV (09:37)
[2025-08-04] MEDS: Lidocaine 2% (20 ml mdv) 20 ML Vial INFILT (09:38)
--- NOTE | 2025-08-04 09:40 | ASPIGT_PTH ---
PATIENT: JAMEE GREEN LOC: CT U#:[id number] AGE/SX: 75/M ROOM: RE08/04/[address]: Dr. Humera Byrnes MD : 1950 BED: DIS: 08/04/2025 SPEC #: [id number] RECD: 08/04/25 10:00 STATUS: CHRISTIANO REArelis #: [id number] BETHEL: 08/04/25 09:[address]: Humera Byrnes DEPT: SURGICAL PATHOLOGY RECD BY: Raffy Sanchez ENTERED: 08/04/25 11:15 SP TYPE: ASP RAD OTHR DR: MD Dr. Aldo Lindsey DO Tissues: A - Lung, NOS Procedures: FNA Specimen Adequacy Immunohistochemical Stains Special Stain Group II Surgery Specimen Level V Imprint (control) IHC Stain ADDITIONAL HEADER OPERATION: Right lung biopsy PRE-OP DIAGNOSIS: Right lung mass TISSUE SUBMITTED: A- Right lung biopsy MICROSCOPIC DIAGNOSIS A. 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 IHC supports the histologic impression - see note. Note: IHC positive for CDX2, CK20, and Villin. IHC negative for CK7 and Napsin A. COMMENT The specimen is evaluated at the time of biopsy by Dr. South. Immediate Evaluation = 2. Adequate. 3. Adequate. A preliminary diagnosis was reported to Dr Марина Byrnes (email) on 08/08/25. MICROSCOPIC DESCRIPTION Slides are reviewed. GROSS DESCRIPTION A. Received in formalin labeled the patient's name and date of are multiple cortez-white tissue core fragments, 0.3 cm to 1.5 cm in length by 0.1 cm in diameter. Touch preparations are made. Entirely submitted in 2 cassettes. MN 08/04/2025 CPT:[id number] ADDENDUM ADDENDUM ADDENDUM ADDENDUM ADDENDUM ADDENDUM ADDENDUM ADDENDUM ADDENDUM ADDENDUM ADDENDUM ADDENDUM ADDENDUM ADDENDUM ADDENDUM ADDENDUM ADDENDUM ADDENDUM ADDENDUM 08/28/2025 09:53 ADDENDUM 08/28/2025 09:53 ADDENDUM 08/28/2025 09:53 ADDENDUM 08/28/2025 09:53 ADDENDUM 08/28/2025 09:53 This addendum is added to incorporate an outside pathology consultation report. The case was examined at [facility] by Dr. Padilla (#[id number]) and the following diagnosis was rendered. A. Right lung, mass, CT-guided core biopsy: Colorectal Cancer Mutation Panel Report - complete Microscopic Description: Tissue was assessed by a molecular pathologist to select areas for analysis and to correlate immunostaining with histology. No morphologic assessment was requested. Colorectal Cancer Mutation Panel Report: INTERPRETATION: Mutations in KRAS, PTEN, and TP53 are detected in this specimen. Please see complete above mentioned consultation report in EMR
--- NOTE | 2025-08-04 10:40 | RAD_ITS ---
PROCEDURE: CHEST INSP/EXP 2 VIEW 08/04/2025 REASON FOR EXAM: POST LUNG BIOPSY TECHNIQUE: Procedure Code: RADCXRINSPEXP Modality: DX Procedure: CHEST INSP/EXP 2 VIEW COMPARISON: Chest CT biopsy images of earlier the same day. RAD/Chest Insp/Exp 2 View IMPRESSION: No significant pneumothorax is seen. The right lung masses are again noted. No evidence of pulmonary edema. No pleural effusion is evident. The cardiomediastinal silhouette is within the normal range. Reading Location: [place] [address]
--- NOTE | 2025-08-04 12:40 | RAD_ITS ---
PROCEDURE: CHEST INSP/EXP 2 VIEW 08/04/2025 REASON FOR EXAM: POST LUNG BIOPSY TECHNIQUE: Procedure Code: RADCXRINSPEXP Modality: DX Procedure: CHEST INSP/EXP 2 VIEW, 3 hours post right middle lobe CT-guided core biopsy. COMPARISON: Postprocedure chest x-ray of RAD/Chest Insp/Exp 2 View IMPRESSION: No pneumothorax is seen. No pleural effusion is evident. The remainder of the examination is unchanged in appearance. Reading Location: [place] [address]
== END 2025-08-04 23:59 | disposition home or self-care (01) ==
PROVIDERS: Radiology Nuclear Radiology; PCP Family Medicine; Referring Provider Internal Medicine Hematology & Oncology; Visit Provider Internal Medicine Hematology & Oncology
DX: Z01.818 Encounter for other preprocedural examination (principal); C18.9 Malignant neoplasm of colon, unspecified; R91.8 Other nonspecific abnormal finding of lung field
CPT/HCPCS: 32408; 36415; 71046; 77012; 85025; 85610; 85730; 88172; 88307; 88313; 88341; 88342; 99156; A4216